=== PATIENT | male | born 1940 | race Caucasian/White ===

== ENCOUNTER → 2018-05-23 14:45 | Outpatient (CLI) | payer MEDICARE, OTHER ==
[~2018-05-23 14:45] MED LIST: AFRIN15 ML NASAL; ASCORBIC ACID500 MG PO; BAYER CHEWABLE81 MG PO; CARDURA2 MG PO; FISH OIL 1,2001 CAP PO; METOPROLOL TART25 MG PO; MULTIPLE VITAMI1 TA1 PO; NORVASC5 MG PO; PERCOCET 5-3251 TAB PO; PRINIVIL20 MG PO; SINGULAIR10 MG PO
[2018-06-17 10:13] VITALS: BMI 33.0
== END | disposition home or self-care (01) ==
LOC: D.MRI 14:45
DX: M75.102 Unspecified rotator cuff tear or rupture of left shoulder, not specified as traumatic (principal)

== ENCOUNTER 2018-06-17 08:45 | Day surgery (SDC) | payer MEDICARE, OTHER ==
[2018-06-16 10:19] LABS: HEMATOCRIT 41.5 % (42.0-54.0); HEMOGLOBIN 14.2 g/dL (13.5-17.5); MCH 33.9 pg (26.0-34.0); MCHC 34.2 g/dL (31.0-37.0); MEAN PLATELET VOLUME 10.5 fL (7.4-10.4); RBC 4.19 10x6/uL (4.20-6.10); RDW 13.5 % (11.5-14.5); WBC 7.7 10x3/uL (4.8-10.8)
[~2018-06-17] VITALS: Ht 177.8 cm; Wt 104.3 kg
--- NOTE | ~2018-06-17 | OP ---
PATIENT NAME: TOPHER SNEED MEDICAL RECORD: [id number] :42 LOCATION:[facility] ADMISSION DATE: SURGEON: VANESSA GARZA DO DATE OF OPERATION: 06/17/2018 PROCEDURE PERFORMED: Left shoulder arthroscopy with biceps tenodesis and distal clavicle excision and mini open rotator cuff repair. PREOPERATIVE DIAGNOSES: Left shoulder rotator cuff tear, acromioclavicular joint arthritis, and SLAP tear. POSTOPERATIVE DIAGNOSES: Left shoulder rotator cuff tear, acromioclavicular joint arthritis, and SLAP tear. INDICATIONS: Mr. Sneed is a 78-year-old male who presented to my office with years of shoulder pain. He had been to physical therapy and tried injections and had an MRI, which showed a tear of the rotator cuff, albeit partial. He was tired of dealing with the pain and wanted something done, told him we would scope it and fix what we saw. He was informed of the risks and benefits of the procedure including infection, bleeding, damage to nerve and vessels, need for further surgeries, irreparable repair, also due to his age. He was okay with that and consented to the procedure. DESCRIPTION OF PROCEDURE: The patient was given a block in the preoperative area and 900 mg of clindamycin preoperatively, taken to the operative suite, laid in the right lateral recumbent position with an axillary roll and a beanbag placed around the patient. He then had an LMA placed. The left shoulder was prepped and draped in sterile fashion. A timeout was performed, everyone was in agreement with the correct side, site and patient, procedure and then, the procedure began with the shoulder joint being inflated with 60 mL of normal saline. Then, the trocar was entered through the posterior portal using an 11 blade to start the portal. Anterior portal was then established with an 11-blade scalpel with a spinal needle first and the biceps tendon was inspected. There was a labral tear, SLAP tear, superior labrum anterior and posterior. We then did a tenotomy of the biceps tendon. The rotator cuff was inspected and seemed to have a tear. The subscapularis tendon was inspected as well and not seemed to have a tear. There was a small amount of chondromalacia on the humeral head. The glenoid looked good. No signs of chondromalacia. I then went to the superior part of the shoulder, the subacromial space and there was a lot of bursa. This was cleared off with a shaver and the distal clavicle was excised with a bur and shaver. The acromion did not seem to have a large spur on it. We then opened it and did a rotator cuff repair through the lateral portal that had been established previously and then that was completed with the medial and lateral rows. The tissue of the posterior cuff was somewhat fragile. This is of note, but we did get it repaired. The biceps tenodesis then was performed, went to the anterior part of the shoulder, made a small incision and dissected down to encountered bicep tendon. This was whipstitched and then a single button was placed on it and placed unicortically into the humerus and tied down and oversewn with a free needle of the extra suture and this was tied down as well. The wounds were then thoroughly irrigated and each of the open wounds were closed with 2-0 Vicryl. The deltoid fascia was closed with 0 Vicryl and then 3-0 Monocryl ran on the skin. The portal sites, anterior and posterior were closed with 3-0 Monocryl in an inverted interrupted fashion. There seemed to be a blister, may have been a burn just distal to the anterior portal. Adaptic, Telfa and Tegaderm were placed over this as well as the portal. No OPERATIVE REPORT [id number] TOPHER SNEED other complications. Blood loss was minimal. He was awakened and taken to recovery, put in a sling in stable condition. TRANSINT:[id number] Voice Confirmation ID: [id number] DOCUMENT ID: [id number] VANESSA GARZA DO at 1657 CC: [id number] DICTATION DATE: 06/17/18 1443 SPECIFICATIONS CHECKER: 06/17/18 1549 [facility] 06/17/18 [place] [id number] [place] [id number]
[~2018-06-17 08:45] MED LIST changes: -PERCOCET 5-3251 TAB PO
[2018-06-17 10:07] VITALS: BP 152/77; BMI 33.0
[2018-06-17 10:13] VITALS: BP 152/77; Ht 177.8 cm; Wt 104.3 kg
[2018-06-17] MEDS ORDERED: PERCOCET 5-3251 TAB PO (14:37)
== END 2018-06-17 16:39 | disposition home or self-care (01) ==
LOC: D.OPS 08:45 → D.PAN 09:45 → D.OPS 10:15 → D.PAN 10:40 → D.OPS 16:39
PROVIDERS: Anesthesiology
DX: M75.112 Incomplete rotator cuff tear or rupture of left shoulder, not specified as traumatic (principal); M13.812 Other specified arthritis, left shoulder; S43.432A Superior glenoid labrum lesion of left shoulder, initial encounter; X58.XXXA Exposure to other specified factors, initial encounter; Z01.812 Encounter for preprocedural laboratory examination

== ENCOUNTER 2018-09-20 05:16 | Day surgery (SDC) | payer MEDICARE, OTHER ==
[~2018-09-20] VITALS: Ht 177.8 cm; Wt 107.5 kg
--- NOTE | ~2018-09-20 | OP ---
PATIENT NAME: TOPHER ESCOBAR MEDICAL RECORD: [id number] :42 LOCATION:[facility] ADMISSION DATE: SURGEON: JOSESITO COSTA MD DATE OF OPERATION: 09/20/2018 SURGEON: Josesito Costa MD ANESTHESIA: MAC or TIVA by Itzel Hussein CRNA DIAGNOSIS: Elevated PSA of 5.63. PROCEDURE: Transrectal ultrasound and prostate biopsy. FINDINGS: A 45.6 gram prostate with no hypoechoic areas. CLINICAL HISTORY: This is a 78-year-old male, who was referred with an elevated PSA of 5.63. The previous year, the PSA was in the normal range. He has some mild obstructive voiding symptoms and there is no family history of prostate cancer. He comes today for a prostate biopsy. He is not allergic to any medications. He was given Ancef reconciliation specialist to the OR. DESCRIPTION OF PROCEDURE: The patient was given IV sedation. He was then placed into dorsal lithotomy position. The transrectal ultrasound probe was placed and prostate size measurements were obtained. We obtained a size of 45.6 grams. There were some intraprostatic stones, but no hypoechoic areas were seen. Sextant biopsies were obtained with at least 3 cores from each sextant. Once all the specimens were obtained, the procedure was terminated. The patient was brought back to the preoperative holding area. I will see him in followup next week to review the pathology with him. TRANSINT:[id number] Voice Confirmation ID: [id number] DOCUMENT ID: [id number] JOSESITO COSTA MD at 0826 CC: [id number] DICTATION DATE: 09/20/18808 BIOMEDICAL REPAIR TECHNICIAN: 09/20/18 0824 [facility] [address] [place] [id number]
[~2018-09-20 05:16] MED LIST changes: +PERCOCET 5-3251 TAB PO
[2018-09-20 05:38] LABS: HEMATOCRIT 43.3 % (42.0-54.0); HEMOGLOBIN 14.2 g/dL (13.5-17.5); MCH 32.7 pg (26.0-34.0); MCHC 32.8 g/dL (31.0-37.0); MCV 99.8 fL (80.0-100.0); MEAN PLATELET VOLUME 10.6 fL (7.4-10.4); RBC 4.34 10x6/uL (4.20-6.10); RDW 14.5 % (11.5-14.5); WBC 7.4 10x3/uL (4.8-10.8)
[2018-09-20 06:27] VITALS: BP 149/75; Ht 177.8 cm; Wt 107.5 kg
== END 2018-09-20 09:04 | disposition home or self-care (01) ==
LOC: D.OPS 05:16 → D.PAN 07:30 → D.OPS 08:30
PROVIDERS: Anesthesiology
DX: R97.20 Elevated prostate specific antigen [PSA] (principal); I10 Essential (primary) hypertension

== ENCOUNTER → 2018-11-10 07:43 | Outpatient (CLI) | payer MEDICARE, OTHER ==
[2018-09-20 06:27] VITALS: BMI 34.0
== END | disposition home or self-care (01) ==
LOC: D.NM 07:43
DX: C61 Malignant neoplasm of prostate (principal)

== ENCOUNTER → 2019-10-09 16:01 | Outpatient (CLI) | payer MEDICARE, OTHER ==
[2018-09-20 06:27] VITALS: BMI 34.0
== END | disposition home or self-care (01) ==
LOC: D.LABREF 16:01
PROVIDERS: ATTEND Orthopaedic Surgery
DX: M16.11 Unilateral primary osteoarthritis, right hip (principal)

== ENCOUNTER 2019-10-11 12:06 | Inpatient (IN) | payer MEDICARE, OTHER ==
[~2019-10-11] VITALS: Ht 177.8 cm; Wt 111.1 kg
[2019-10-20] MEDS ORDERED: FLUTICASONE PRO16 GM NASAL (13:58)
[2019-10-23] MEDS ORDERED: FLOMAX0.4 MG PO (10:29)
[2019-10-23 11:56] LABS: APPEARANCE CLEAR (CLEAR); BACTERIA FEW /hpf (NEGATIVE); BILIRUBIN NEGATIVE (NEGATIVE); COLOR YELLOW (YELLOW); EPITHELIAL CELLS 0-5 /hpf (0-5); GLUCOSE NEGATIVE (NEGATIVE); GRANULAR CAST RARE /lpf (NONE SEEN); HYALINE CAST OCC /lpf (NONE SEEN); KETONE NEGATIVE (NEGATIVE); MUCUS >1+ /lpf (NONE SEEN); NITRITE NEGATIVE (NEGATIVE); PROTEIN TRACE mg/dL (NEGATIVE); RED CELLS - URINE NONE SEEN /hpf (0-5); UROBILINOGEN NORMAL (NORMAL); WHITE CELLS - URINE OCC /hpf (NEGATIVE)
[2019-10-31] VITALS (9 sets, daily range): BP systolic 95–152; BP diastolic 43–80; Ht 177.8 cm; Wt 111.1 kg
[2019-10-31] MEDS ORDERED: BACTRIM DS1 TAB PO (09:30)
[2019-10-31 09:38] LABS: BASOPHILS 0.6 % (0-2); EOSINOPHILS 3.2 % (0-7); HEMATOCRIT 39.5 % (42.0-54.0); HEMOGLOBIN 13.1 g/dL (13.5-17.5); IMMATURE GRANULOCYTES 0.5 % (0-5); LYMPHOCYTES 33.3 % (15-50); MCH 33.5 pg (26.0-34.0); MCHC 33.2 g/dL (31.0-37.0); MEAN PLATELET VOLUME 10.5 fL (7.4-10.4); MONOCYTES 8.5 % (2-11); NEUTROPHILS 53.9 % (40-80); PLATELET COUNT 222 10x3/uL (130-400); RBC 3.91 10x6/uL (4.20-6.10); RDW 13.9 % (11.5-14.5); WBC 6.6 10x3/uL (4.8-10.8)
[2019-10-31 09:44] LABS: CALC OSMOLALITY 290 mosm/kg (275-300); CALCIUM 8.9 mg/dL (8.5-10.1); CARBON DIOXIDE 26.5 mmol/L (21.0-32.0); CHLORIDE - SERUM 109 mmol/L (98-107); GLUCOSE 94 mg/dL (74-106); POTASSIUM - SERUM 4.1 mmol/L (3.5-5.1); SODIUM 144 mmol/L (136-145); UREA NITROGEN 23 mg/dL (7-18); eGFR NON AFRICAN AMERICAN 77 mL/min (90-120)
[2019-10-31 09:52] LABS: APTT 28.4 SECONDS (22.8-39.4); INR 1.1 (0.85-1.17); PROTIME 13.7 SECONDS (11.6-15.0)
--- NOTE | 2019-10-31 12:48 | NUR ---
PLASMA BLADE SET TO 6/8 GROUNDING PAD ON LEFT THIGH GROUNDIONG PAD LOT # [id number] EXP 04/06/2021
--- NOTE | 2019-10-31 15:20 | NUR ---
RCVED PT VIA HOSPITAL STAFF AND BED FROM RECOVERY ROOM. PT ALERT AND ORIENTED WITH NO S/S OF DISTRESS AT THIS TIME, DENIES NEEDS, WILL CONT TO MONITOR.
--- NOTE | 2019-10-31 15:45 | NUR ---
ICE APPLIED TO AFFECTED HIP, SCDS ON, ANKLES BRIDGED.
--- NOTE | 2019-10-31 19:15 | NUR ---
PATIENT LYING DOWN SLEEPING IN BED. AROUSES EASILY TO VOICE. DRESSING ON R HIP C/D/I. L HAND IV WITH 1/2 NS @100, NO REDNESS, OR SWELLING. 3L OF O2. PATIENT DENIES ANY NEEDS AT THIS TIME. CALL LIGHT AND BEDSIDE TABLE WITHIN REACH.
--- NOTE | 2019-10-31 20:30 | NUR ---
WHEN GIVING PATIENT NIGHT MEDS. PATIENT STATES THAT IT IS NORMAL FOR HIS HEART RATE TO RUN IN THE 50S AND SYSTOLIC BP TO BE BELOW 60 WHEN TAKING LOPRESSOR. DOCTOR SAID THIS IS OKAY.
[2019-11-01] VITALS (7 sets, daily range): BP systolic 118–144; BP diastolic 51–63
[2019-11-01 02:56] LABS: APPEARANCE CLEAR (CLEAR); BILIRUBIN NEGATIVE (NEGATIVE); COLOR YELLOW (YELLOW); GLUCOSE NEGATIVE (NEGATIVE); KETONE NEGATIVE (NEGATIVE); NITRITE NEGATIVE (NEGATIVE); PROTEIN 1+ mg/dL (NEGATIVE); SPECIFIC GRAVITY 1.025 (1.005-1.020); UROBILINOGEN NORMAL (NORMAL)
[2019-11-01 05:02] LABS: BASOPHILS 0.2 % (0-2); EOSINOPHILS 0.1 % (0-7); HEMATOCRIT 34.2 % (42.0-54.0); HEMOGLOBIN 11.1 g/dL (13.5-17.5); IMMATURE GRANULOCYTES 0.3 % (0-5); LYMPHOCYTES 12.3 % (15-50); MCHC 32.5 g/dL (31.0-37.0); MCV 101.8 fL (80.0-100.0); MEAN PLATELET VOLUME 10.8 fL (7.4-10.4); MONOCYTES 10.7 % (2-11); NEUTROPHILS 76.4 % (40-80); PLATELET COUNT 218 10x3/uL (130-400); RBC 3.36 10x6/uL (4.20-6.10); RDW 13.9 % (11.5-14.5)
[2019-11-01 05:10] LABS: WBC 11.2 10x3/uL (4.8-10.8)
[2019-11-01 05:19] LABS: CALCIUM 8.1 mg/dL (8.5-10.1); CARBON DIOXIDE 26.7 mmol/L (21.0-32.0); CREATININE - SERUM 1.1 mg/dL (0.6-1.3); MAGNESIUM - SERUM 1.9 mg/dL (1.8-2.4); PHOSPHOROUS 4.1 mg/dL (2.5-4.9); POTASSIUM - SERUM 4.7 mmol/L (3.5-5.1)
--- NOTE | 2019-11-01 07:30 | NUR ---
PT RESTING, RR EVEN AND UNLABORED. DENIES NEEDS OR PAIN AT THIS TIME. PSYCHOTHERAPIST AT BEDSIDE. CALL LIGHT WITHIN REACH. BED IN LOWEST POSITION. WILL CONTINUE TO MONITOR.
--- NOTE | 2019-11-01 11:07 | OP ---
PATIENT NAME: TOPHER SNEED MEDICAL RECORD: [id number] :42 LOCATION:D.[id number] ADMISSION DATE:10/31/19 SURGEON: HERNAN GARZA DO DATE OF OPERATION: 10/31/2019 PROCEDURE PERFORMED: Right total hip arthroplasty. PREOPERATIVE DIAGNOSIS: Right hip osteoarthritis. POSTOPERATIVE DIAGNOSIS: Right hip osteoarthritis. INDICATIONS: Mr. Sneed is a 79-year-old male who has had right hip pain for quite some time and is tired of dealing with it and had good luck with injections in the past and wants something done surgically. He is tired of it affecting his activities of daily living and wants something done. I informed her of the risks including infection, bleeding, damage to nerves and vessels, anterior lateral thigh numbness, fracture, need for further surgery, failure of implants, blood clots, and even and he signed the consent. SURGEON: Hernan Garza DO STAFF COUNSEL: Assisted by Ronald Whitman, advanced nurse practitioner and Cristhian Dickens, certified procedural coder, both assisted with retraction and closing. The surgery could not have been performed without their assistance. DESCRIPTION OF THE PROCEDURE: The patient was taken to the operative suite, laid in supine position, given 80 mg gentamicin and 2 grams of Ancef. He was then sedated and intubated and then moved over to the [place] table. The right hip was prepped and draped in sterile fashion. Timeout was performed and everybody was in agreement with the correct side, site, patient, and procedure. Incision was then marked out and cut down to the fascia and tensor fasciae latae muscle. Fascia was taken anteriorly with the muscle belly posteriorly. I opened up the rectus interval and fascia was then opened, then the rectus was taken medially and the tensor fascia laterally. The ascending branches of the lateral femoral circumflex were encountered, tied off, and coagulated with Aquamantys. We then put a Hohmann around the neck of the femur. The capsule was then opened and the neck cut was made. This was then removed. The head of the femur was then removed. Labrum was removed off the acetabulum as well as the Pulvinar and the inner portion of it and then reamed first with a #48 and up to a #54. We needed to medialize some more, we then went back with a #50 to medialize up to a 54. A #54 cup was then impacted into place. The liner was put in. The femur was exposed and found the canal with the canal finder and then the cookie cutter posteriorly. The broaching began up to a 13. This was trialed and then fit well with a -3 neck. This was taken out. The #13 was a little loose. A #14 was put down, #14 fit very well, #14 stem was then placed and -3 neck was put on with a high offset. This was then reduced and had good length and fit the femur very well. The site was then irrigated thoroughly and then the povidone-iodine solution 7% with 500 mL normal saline was introduced through the site and was left for 3 minutes and irrigated out with a liter of normal saline and then put tobramycin and vancomycin powder as well as Quinn powder in the site and closed the tensor fascia demetrio fascia with #1 Vicryl, first in a [id number] and then a running locking stitch. The skin was closed with 2-0 Vicryl in an inverted interrupted fashion and 4-0 Monocryl to the skin. Prineo glue on the skin and dressed with Telfa and Tegaderm. He was OPERATIVE REPORT [id number] TOPHER SNEED awakened and taken to the recovery in stable condition. Blood loss was approximately 200 mL. COMPLICATIONS: None. TRANSINT:[id number] Voice Confirmation ID: [id number] DOCUMENT ID: [id number] HERNAN GARZA DO at 1107 CC: [id number] DICTATION DATE: 10/31/19 1355 RADIOLOGY ASST: 10/31/19 5484 ADM IN [place] [id number] [place] [id number]
--- NOTE | 2019-11-01 12:45 | NUR ---
PT ASSISTED BACK TO BED WITH WALKER. STEADY GAIT NOTED. WATER RECIEVED PER REQUEST. DENIES FURTHER NEEDS OR PAIN AT THIS TIME. REPOSITIONED TO COMFORT. RECIVED FRESH ICE PACK FOR HIP. CALL LIGHT WITHIN REACH. BED IN LOWEST POSITION.WILL CONTINUE TO MONITOR.
--- NOTE | 2019-11-01 16:58 | NUR ---
CALLL LIGHT ANSWERED. PT DROPPED URINAL ON GROUND. PLACED IT BACK WITHIN REACH. DENIES FURTHER NEEDS OR PAIN AT THIS TIME. CALL LIGHT ALSO WITHIN REACH. BED IN LOWEST POSITION. PT REPOSITIONED TO COMFORT. WILL CONTINUE TO MONITOR.
--- NOTE | 2019-11-01 17:28 | NUR ---
I have reviewed this patient and I concur with the Shift Assessment completed by the Licensed Practical Nurse today this shift.
--- NOTE | 2019-11-01 20:00 | NUR ---
LYING IN BED. ALERT AND ORIENTED X4. RATES PAIN IN RT HIP 1 UNLESS MOVING AND THEN HE STATES ITS A 10. DENIES NEED FOR PAIN MED. DRSG C/D/I TO RT HIP. RESP NONLABORED. O2 @ 3L/NC. SCDS IN USE BILAT. HAVASUPAI. 1/2 NS @ 50 MLHR INFUSING IN LT HAND. ABD DISTENDED. HX OF ALCOHOL USE. NO DISTRESS. REBECCA ALARM ON. SR ELEVATED X2. CL IN REACH.
[2019-11-02] VITALS: BP 131/55
--- NOTE | 2019-11-02 01:51 | NUR ---
SPILLED URINAL IN BED. PERICARE PERFORMED. PAD CHANGED. CL IN REACH.
[2019-11-02 06:06] LABS: BASOPHILS 0.2 % (0-2); HEMOGLOBIN 10.6 g/dL (13.5-17.5); IMMATURE GRANULOCYTES 0.3 % (0-5); LYMPHOCYTES 13.7 % (15-50); MCH 32.6 pg (26.0-34.0); MCHC 32.1 g/dL (31.0-37.0); MCV 101.5 fL (80.0-100.0); MEAN PLATELET VOLUME 10.8 fL (7.4-10.4); NEUTROPHILS 71.8 % (40-80); PLATELET COUNT 193 10x3/uL (130-400); RBC 3.25 10x6/uL (4.20-6.10); RDW 14.2 % (11.5-14.5); WBC 12.1 10x3/uL (4.8-10.8)
--- NOTE | 2019-11-02 06:18 | NUR ---
LYING IN BED WITH EYES CLOSED. RESP EVEN AND NONLABORED. NO DISTRESS. REBECCA ON. CL IN REACH.
--- NOTE | 2019-11-02 06:45 | NUR ---
ALERT AND ORIENTED, RESTING IN BED WITH EYES OPEN. NO C/O PAIN. NO S/S OF ACUTE DISTRESS NOTED. AGITATED THIS MORNING. [place]OG[place]IUT. POD #2 RIGHT HIP, DRESSING C/D/I. UP WITH WALKER. ON 3L O2, NC. IV TO LEFT HAND, 1/2 NS INFUSING @ 50ML/HR. SITE PATENT WITHOUT REDNESS OR SWELLING. REBECCA ALARM ON. SCDS PRESENT. DENIES ANY NEEDS AT THIS TIME. CALL LIGHT IN REACH. WILL CONTINUE TO MONITOR.
[2019-11-02 07:04] LABS: CARBON DIOXIDE 24.1 mmol/L (21.0-32.0); CHLORIDE - SERUM 106 mmol/L (98-107); CREATININE - SERUM 0.9 mg/dL (0.6-1.3); GLUCOSE 109 mg/dL (74-106); MAGNESIUM - SERUM 1.9 mg/dL (1.8-2.4); SODIUM 141 mmol/L (136-145); eGFR NON AFRICAN AMERICAN 87 mL/min (90-120)
[2019-11-02 07:05] LABS: CALC OSMOLALITY 283 mosm/kg (275-300); PHOSPHOROUS 2.8 mg/dL (2.5-4.9); POTASSIUM - SERUM 3.8 mmol/L (3.5-5.1); UREA NITROGEN 18 mg/dL (7-18)
[2019-11-02 10:12] VITALS: BP 135/57
[2019-11-02 12:47] VITALS: BP 129/61
[2019-11-02 17:31] VITALS: BP 137/50
--- NOTE | 2019-11-02 18:54 | NUR ---
ALERT AND ORIENTED, RESTING IN BED WITH EYES OPEN. NO C/O PAIN. NO S/S OF ACUTE DISTRESS NOTED. DENIES ANY NEEDS AT THIS TIME. CALL LIGHT IN REACH. WILL CONTINUE TO MONITOR.
--- NOTE | 2019-11-02 19:40 | NUR ---
ALERT AND ORIENTED X4. LYING IN BED. IRRITABLE AT TIMES, DOESNT LIKE BEING DISTURBED. RESP NONLABORED. O2 @2LNC. SCDS IN USE BILAT. DRSG NOTED TO RT HIP IS C/D/I. [employer] [place]. REBECCA ALARM ON FOR PT SAFETY. 1/2 NS @ 30 MLHR INFUSING IN LT HAND. AMB WITH WALKER WITH ASSIST X1. DENIES PAIN AT THIS TIME. CL IN REACH.
--- NOTE | 2019-11-02 23:15 | NUR ---
MEDICATED WITH NORCO FOR C/O RT HIP PAIN. CL IN REACH.
[2019-11-03 04:00] VITALS: BP 133/61
[2019-11-03 05:17] LABS: BASOPHILS 0.1 % (0-2); EOSINOPHILS 2.2 % (0-7); HEMATOCRIT 31.2 % (42.0-54.0); HEMOGLOBIN 10.1 g/dL (13.5-17.5); IMMATURE GRANULOCYTES 0.3 % (0-5); LYMPHOCYTES 21.4 % (15-50); MCHC 32.4 g/dL (31.0-37.0); MEAN PLATELET VOLUME 10.7 fL (7.4-10.4); MONOCYTES 13.1 % (2-11); NEUTROPHILS 62.9 % (40-80); PLATELET COUNT 193 10x3/uL (130-400); RBC 3.06 10x6/uL (4.20-6.10); RDW 14.1 % (11.5-14.5)
[2019-11-03 06:21] LABS: ANION GAP 12.8 mmol/L (8-16); CALCIUM 8.4 mg/dL (8.5-10.1); CREATININE - SERUM 1.1 mg/dL (0.6-1.3); PHOSPHOROUS 2.8 mg/dL (2.5-4.9); POTASSIUM - SERUM 3.8 mmol/L (3.5-5.1)
--- NOTE | 2019-11-03 08:42 | NUR ---
RESTING IN BED, NO DISTRESS NOTED, SPILLED URINAL IN BED, DIFFICULT TO TURN, CONT TO MONITOR, DRESSING DRY AND INTACT TO RIGHT HIP
[2019-11-03 08:49] VITALS: BP 133/62
[2019-11-03 11:25] LABS: % SATURATION 9 % (15-55); IRON 16 ug/dl (35-150); TOTAL IRON BIND CAPACITY 174 ug/dl (260-445); UNSAT IRON BIND CAPACITY 158 ug/dl (150-375)
--- NOTE | 2019-11-03 11:40 | MORECARE ---
CASE MANAGEMENT DISCHARGE SUMMARY PATIENT: TOPHER ESCOBAR UNIT: [id number] ADM DATE: 10/31/19 AGE: 79 : 42 SEX: M ROOM/BED: D.2208 AUTHOR: TROY CAMACHO PHYSICIAN: REFERRING PHYSICIAN: VANESSA GARZA DO DATE OF SERVICE: 11/03/19 Discharge Plan Patient Name: TOPHER ESCOBAR [facility] [facility] 1940 Planned Disposition: Inpatient Rehab Anticipated Discharge Date: 11/03/19 Discharge Date: Expected LOS: 3 Initial Reviewer: [email or web address] Initial Review Date: 11/03/2019 Generated: 11/03/19 12:40 pm Patient Name: TOPHER ESCOBAR Page [phone] at 1140 All edits/amendments must be made on the electronic document DICTATION DATE: 11/03/19 1140 OBSTETRICAL TECH: SHANNON 11/03/19 1140 RPT#: [id number] DC DATE: STATUS: ADM IN [facility] [address] [place] [address] END OF REPORT
--- NOTE | 2019-11-03 11:47 | MORECARE ---
CASE MANAGEMENT DISCHARGE SUMMARY PATIENT: TOPHER SNEED UNIT: [id number] ADM DATE: 10/31/19 AGE: 79 : 42 SEX: M ROOM/BED: D.2208 AUTHOR: TROY CAMACHO PHYSICIAN: REFERRING PHYSICIAN: VANESSA GARZA DO DATE OF SERVICE: 11/03/19 Discharge Plan Patient Name: TOPHER SNEED [facility] : 1940 Planned Disposition: Inpatient Rehab Anticipated Discharge Date: 11/03/19 Discharge Date: Expected LOS: 3 Initial Reviewer: [email or web address] Initial Review Date: 11/03/2019 Generated: 11/03/19 12:46 pm DCPIA - Discharge Planning Initial Assessment Updated by [email or web address]: Caitlin Aquino on 11/03/19 11:45 am * Is the patient Alert and Oriented? Yes * How many steps to enter\exit or inside your home? 0/0 * PCP Dr. Frederick * Pharmacy [facility] on [address] * Preadmission Environment Home with Family * ADLs Independent * Equipment Oxygen * List name and contact numbers for known caregivers / representatives who currently or will assist patient after discharge: Miya Sneed - spouse - [phone] * Verbal permission to speak to the caregivers and representatives has been obtained from the patient. Yes * Community resources currently utilized None * Additional services required to return to the preadmission environment? Yes * Can the patient safely return to the preadmission environment? Yes * Has this patient been hospitalized within the prior 30 days at any hospital? No Last DP export: 11/03/19 10:40 am Patient Name: TOPHER SNEED Page [phone] at 1147 All edits/amendments must be made on the electronic document DICTATION DATE: 11/03/19 1146 DIRECTOR SALES: SHANNON 11/03/19 1146 RPT#: [id number] DC DATE: STATUS: ADM IN [facility] [address] [place] [address] END OF REPORT
--- NOTE | 2019-11-03 11:55 | MORECARE ---
CASE MANAGEMENT DISCHARGE SUMMARY PATIENT: TOPHER SNEED UNIT: [id number] ADM DATE: 10/31/19 AGE: 79 : 42 SEX: M ROOM/BED: D.2208 AUTHOR: TROY CAMACHO PHYSICIAN: REFERRING PHYSICIAN: VANESSA GARZA DO DATE OF SERVICE: 11/03/19 Discharge Plan Patient Name: TOPHER SNEED Facility: [facility]:[place] : 1940 Planned Disposition: Inpatient Rehab Anticipated Discharge Date: 11/03/19 Discharge Date: Expected LOS: 3 Initial Reviewer: [email or web address] Initial Review Date: 11/03/2019 Generated: 11/03/19 12:54 pm Comments DCP- Discharge Planning Updated by [email or web address]: Caitlin Aquino on 11/03/19 10:[address] Patient Name: TOPHER SNEED Admission Status: Elective Accout number: [id number] Admission Date: 10-31-2019 : 1940 Admission Diagnosis: Attending: VANESSA GARZA Current LOS: 3 Anticipated DC Date: 11-03-2019 Planned Disposition: Inpatient Rehab Primary Insurance: MEDICARE A & B Discharge Planning Comments: CM met with patient to complete initial dc planning assessment. CM educated patient on the CM role and verbal consent given by patient to complete assessment. Patient lives at home with his spouse. He states he is independent with all ADL's and AIDL's. States he wears oxygen at night, receives oxygen supplies from [facility] CM discussed availability of home health, rehab services, and medical equipment. Patient states he would like to go to inpatient rehab at [facility]. I have placed a rehab screen and spoke with [facility]. [facility] states they can accept today if discharged. I messaged Dr. Garza of the same. CM will continue to follow and will assist as needed with dc plans/needs. Solar Photovoltaic Electrician: Caitlin Aquino DCPIA - Discharge Planning Initial Assessment Updated by [email or web address]: Caitlin Aquino on 11/03/19 11:45 am * Is the patient Alert and Oriented? Yes * How many steps to enter\exit or inside your home? 0/0 * PCP Dr. Frederick * Pharmacy [facility] on [address] * Preadmission Environment Home with Family * ADLs Independent * Equipment Oxygen * List name and contact numbers for known caregivers / representatives who currently or will assist patient after discharge: Miya Sneed - spouse - [phone] * Verbal permission to speak to the caregivers and representatives has been obtained from the patient. Yes * Community resources currently utilized None * Additional services required to return to the preadmission environment? Yes * Can the patient safely return to the preadmission environment? Yes * Has this patient been hospitalized within the prior 30 days at any hospital? No Coverage Notice Reviewer: ROMEO Aquino Notice Issued Date-Time: 11/03/2019 11:47 Notice Type: IM Discharge Notice Notice Delivered To: Patient Relationship to Patient: Self Water Filter Cleaner Name: Delivery Method: HAND - Hand Delivered Summer Days: Prior Verbal Notification: Recipient Understood Notice: Yes Recipient Signature: Yes Med Rec Note Co-signed by Attending: Coverage Notice Comment: IMM explained, signed, given, copy placed in Mr Reviewer: [email or web address] Aquino Notice Issued Date-Time: 11/03/2019 11:47 Notice Type: Patient Choice Letter Notice Delivered To: Patient Relationship to Patient: Self Water Filter Cleaner Name: Delivery Method: HAND - Hand Delivered Summer Days: Prior Verbal Notification: Recipient Understood Notice: Yes Recipient Signature: Yes Med Rec Note Co-signed by Attending: Coverage Notice Comment: SANCHEZ for [facility] inpatient rehab Last DP export: 11/03/19 10:47 am Patient Name: TOPHER SNEED Page 89203 at 1155 All edits/amendments must be made on the electronic document DICTATION DATE: 11/03/19 1154 EDITOR MAGAZINE: SHANNON 11/03/19 1154 RPT#: [id number] DC DATE: STATUS: ADM IN [facility] [address] [place] [address] END OF REPORT
[2019-11-03 12:49] VITALS: BP 127/65
--- NOTE | 2019-11-03 16:35 | MORECARE ---
CASE MANAGEMENT DISCHARGE SUMMARY PATIENT: TOPHER SNEED UNIT: [id number] ADM DATE: 10/31/19 AGE: 79 : 42 SEX: M ROOM/BED: D.2208 AUTHOR: TROY CAMACHO PHYSICIAN: REFERRING PHYSICIAN: VANESSA GARZA DO DATE OF SERVICE: 11/03/19 Discharge Plan Patient Name: TOPHER SNEED Facility[facility]:[place] : 1940 Planned Disposition: Inpatient Rehab Anticipated Discharge Date: 11/03/19 Discharge Date: Expected LOS: 3 Initial Reviewer: [email or web address] Initial Review Date: 11/03/2019 Generated: 11/03/19 5:35 pm Comments DCP- Discharge Planning Updated by [email or web address]: Caitlin Aquino on 11/03/19 3:[address] I spoke with [facility] in inpatient rehab, they will accept the patient tomorrow. Anticipate discharge tomorrow to inpatient rehab. DCP- Discharge Planning Updated by [email or web address]: Caitlin Aquino on 11/03/19 10:[address] Patient Name: TOPHER SNEED Admission Status: Elective Accout number: [id number] Admission Date: 10-31-2019 : 1940 Admission Diagnosis: Attending: VANESSA GARZA Current LOS: 3 Anticipated DC Date: 11-03-2019 Planned Disposition: Inpatient Rehab Primary Insurance: MEDICARE A & B Discharge Planning Comments: CM met with patient to complete initial dc planning assessment. CM educated patient on the CM role and verbal consent given by patient to complete assessment. Patient lives at home with his spouse. He states he is independent with all ADL's and AIDL's. States he wears oxygen at night, receives oxygen supplies from [facility] CM discussed availability of home health, rehab services, and medical equipment. Patient states he would like to go to inpatient rehab at [facility]. I have placed a rehab screen and spoke with [facility]. Breana states they can accept today if discharged. I messaged Dr. Garza of the same. CM will continue to follow and will assist as needed with dc plans/needs. Manager Sharepoint: Caitlin Aquino DCPIA - Discharge Planning Initial Assessment Updated by [email or web address]: Caitlin Aquino on 11/03/19 11:45 am * Is the patient Alert and Oriented? Yes * How many steps to enter\exit or inside your home? 0/0 * PCP Dr. Frederick * Pharmacy [facility] on [address] * Preadmission Environment Home with Family * ADLs Independent * Equipment Oxygen * List name and contact numbers for known caregivers / representatives who currently or will assist patient after discharge: Miya Sneed - [facility] - [phone] * Verbal permission to speak to the caregivers and representatives has been obtained from the patient. Yes * Community resources currently utilized None * Additional services required to return to the preadmission environment? Yes * Can the patient safely return to the preadmission environment? Yes * Has this patient been hospitalized within the prior 30 days at any hospital? No Coverage Notice Reviewer: [email or web address] Nahomy Aquino Notice Issued Date-Time: 11/03/2019 11:47 Notice Type: IM Discharge Notice Notice Delivered To: Patient Relationship to Patient: Self Crutching Contractor Name: Delivery Method: HAND - Hand Delivered Summer Days: Prior Verbal Notification: Recipient Understood Notice: Yes Recipient Signature: Yes Med Rec Note Co-signed by Attending: Coverage Notice Comment: IMM explained, signed, given, copy placed in Mr Reviewer: [email or web address] Nahomy Charltony Kenia Notice Issued Date-Time: 11/03/2019 11:47 Notice Type: Patient Choice Letter Notice Delivered To: Patient Relationship to Patient: Self Crutching Contractor Name: Delivery Method: HAND - Hand Delivered Summer Days: Prior Verbal Notification: Recipient Understood Notice: Yes Recipient Signature: Yes Med Rec Note Co-signed by Attending: Coverage Notice Comment: SANCHEZ for [facility] inpatient rehab Last DP export: 11/03/19 10:55 am Patient Name: TOPHER SNEED Page [phone] at 1635 All edits/amendments must be made on the electronic document DICTATION DATE: 11/03/19 1635 PRODUCT SCIENTIST: SHANNON 11/03/19 1635 RPT#: [id number] DC DATE: STATUS: ADM IN [facility] [address] [place] [address] END OF REPORT
[2019-11-03 17:50] VITALS: BP 136/64
--- NOTE | 2019-11-03 19:45 | NUR ---
PT SITTING UP IN BED WITHOUT DISTRESS, AOX4. IV LEFT HAND INFUSING 1/2NS @ 50. O2 2L/NC. SCDS IN PLACE BILAT. BED ALARM ON. DENIES NEEDS AT THIS TIME. CL IN REACH, WILL CTM
[2019-11-03 20:00] VITALS: BP 124/61
--- NOTE | 2019-11-03 21:30 | NUR ---
PT REQUESTED PAIN MED FOR PAIN 6/10 IN HIP, GAVE NORCO ORDERED. DENIES OTHER NEEDS. CL IN REACH, WILL CTM
[2019-11-04 06:10] LABS: BASOPHILS 0.1 % (0-2); HEMATOCRIT 31.5 % (42.0-54.0); HEMOGLOBIN 10.2 g/dL (13.5-17.5); IMMATURE GRANULOCYTES 0.5 % (0-5); LYMPHOCYTES 21.8 % (15-50); MCH 33.1 pg (26.0-34.0); MCHC 32.4 g/dL (31.0-37.0); MCV 102.3 fL (80.0-100.0); MEAN PLATELET VOLUME 10.7 fL (7.4-10.4); MONOCYTES 12.6 % (2-11); PLATELET COUNT 213 10x3/uL (130-400); RBC 3.08 10x6/uL (4.20-6.10); RDW 14.1 % (11.5-14.5); WBC 9.7 10x3/uL (4.8-10.8)
[2019-11-04 06:26] LABS: CALC OSMOLALITY 285 mosm/kg (275-300); CALCIUM 8.7 mg/dL (8.5-10.1); CARBON DIOXIDE 25.2 mmol/L (21.0-32.0); CHLORIDE - SERUM 108 mmol/L (98-107); GLUCOSE 102 mg/dL (74-106); MAGNESIUM - SERUM 2.1 mg/dL (1.8-2.4); PHOSPHOROUS 3.3 mg/dL (2.5-4.9); POTASSIUM - SERUM 3.9 mmol/L (3.5-5.1); SODIUM 142 mmol/L (136-145); UREA NITROGEN 20 mg/dL (7-18); eGFR NON AFRICAN AMERICAN 77 mL/min (90-120)
--- NOTE | 2019-11-04 09:00 | NUR ---
ALERT AND ORIENTED X4 WITH DRESSING TO RT. HIP INTACT. LUNGS CTA WITH LIMITED ROM TO RT. HIP BUT UP WITH ASSIST WITH WALKER WITH THERAPY AND AMBULATED 15 FT. IN HALLWAY. ABDOMEN OBESE AND SOFT WITH BOWEL SOUNDS NOTED. INSTRUCTED ON NEED FOR STOOL SPECIMEN. DENIES ANY PAIN OR DISCOMFORT AT THIS TIME. IV TO LEFT HAND INFUSING AT PRESCRIBED RATE.
[2019-11-04] MEDS ORDERED: ASPIRIN81 MG PO (09:23)
[2019-11-04] MEDS ORDERED: HYDROCODON-ACE1 EA10 PO (09:24)
[2019-11-04] MEDS ORDERED: CIPRO500 MG PO (09:24)
[2019-11-04 10:12] VITALS: BP 143/95
--- NOTE | 2019-11-04 13:08 | NUR ---
IV DISCONTINUED AND DISCHARGED TO REHAB VIA W/C. STABLE AT TIME OF DEPARTURE.
--- NOTE | 2019-11-05 10:39 | MORECARE ---
CASE MANAGEMENT DISCHARGE SUMMARY PATIENT: TOPHER SNEED UNIT: [id number] ADM DATE: 10/31/19 AGE: 79 : 42 SEX: M ROOM/BED: D.2208 AUTHOR: TROY CAMACHO PHYSICIAN: REFERRING PHYSICIAN: VANESSA GARZA DO DATE OF SERVICE: 11/05/19 Discharge Plan Patient Name: TOPHER SNEED Facility: [facility]:[place] : 1940 Planned Disposition: Inpatient Rehab Anticipated Discharge Date: 11/03/19 Discharge Date: 11/04/2019 Expected LOS: 3 Initial Reviewer: [email or web address] Initial Review Date: 11/03/2019 Generated: 11/05/19 11:38 am Comments DCP- Discharge Planning Updated by [email or web address]: Caitlin Aquino on 11/03/19 3:[address] I spoke with Breana in inpatient rehab, they will accept the patient tomorrow. Anticipate discharge tomorrow to inpatient rehab. DCP- Discharge Planning Updated by [email or web address]: Caitlin Aquino on 11/03/19 10:[address] Patient Name: TOPHER SNEED Admission Status: Elective Accout number: [id number] Admission Date: 10-31-2019 : 1940 Admission Diagnosis: Attending: VANESSA GARZA Current LOS: 3 Anticipated DC Date: 11-03-2019 Planned Disposition: Inpatient Rehab Primary Insurance: MEDICARE A & B Discharge Planning Comments: CM met with patient to complete initial dc planning assessment. CM educated patient on the CM role and verbal consent given by patient to complete assessment. Patient lives at home with his spouse. He states he is independent with all ADL's and AIDL's. States he wears oxygen at night, receives oxygen supplies from [facility] CM discussed availability of home health, rehab services, and medical equipment. Patient states he would like to go to inpatient rehab at [facility]. I have placed a rehab screen and spoke with Breana. Breana states they can accept today if discharged. I messaged Dr. Garza of the same. CM will continue to follow and will assist as needed with dc plans/needs. Dividend Deposit Entry Clerk: Caitlin Aquino DCPIA - Discharge Planning Initial Assessment Updated by [email or web address]: Caitlin Aquino on 11/03/19 11:45 am * Is the patient Alert and Oriented? Yes * How many steps to enter\exit or inside your home? 0/0 * PCP Dr. Frederick * Pharmacy [facility] on [address] * Preadmission Environment Home with Family * ADLs Independent * Equipment Oxygen * List name and contact numbers for known caregivers / representatives who currently or will assist patient after discharge: Miya Sneed - spouse - [phone] * Verbal permission to speak to the caregivers and representatives has been obtained from the patient. Yes * Community resources currently utilized None * Additional services required to return to the preadmission environment? Yes * Can the patient safely return to the preadmission environment? Yes * Has this patient been hospitalized within the prior 30 days at any hospital? No Coverage Notice Reviewer: [email or web address] Aquino Notice Issued Date-Time: 11/03/2019 11:47 Notice Type: IM Discharge Notice Notice Delivered To: Patient Relationship to Patient: Self Steel Pourer Helper Name: Delivery Method: HAND - Hand Delivered Summer Days: Prior Verbal Notification: Recipient Understood Notice: Yes Recipient Signature: Yes Med Rec Note Co-signed by Attending: Coverage Notice Comment: IMM explained, signed, given, copy placed in Mr Reviewer: [id number] Nahomy Aquino Notice Issued Date-Time: 11/03/2019 11:47 Notice Type: Patient Choice Letter Notice Delivered To: Patient Relationship to Patient: Self Steel Pourer Helper Name: Delivery Method: HAND - Hand Delivered Summer Days: Prior Verbal Notification: Recipient Understood Notice: Yes Recipient Signature: Yes Med Rec Note Co-signed by Attending: Coverage Notice Comment: SANCHEZ for [facility] inpatient rehab Last DP export: 11/03/19 3:35 pm Patient Name: TOPHER SNEED Page [id number] at 1039 All edits/amendments must be made on the electronic document DICTATION DATE: 11/05/19 1038 CONVEYOR INSTALLER: SHANNON 11/05/19 1038 RPT#: [id number] DC DATE:11/04/19 STATUS: DIS IN [facility] [address] [place] [address] END OF REPORT
== END 2019-11-04 13:08 | DRG 469 ==
LOC: D.SDCHOLD 10-31 08:55 → D.MS 10-31 08:55 → D.SDCHOLD 10-31 10:00 → D.MS 10-31 15:15
PROVIDERS: Emergency Medicine; Family Medicine; ADMIT Orthopaedic Surgery; ATTEND Orthopaedic Surgery
PROC: 0SR90J9 Replacement of Right Hip Joint with Synthetic Substitute, Cemented, Open Approach (ICD-10-PCS; principal; 2019-10-31 10:30)
DX: M16.11 Unilateral primary osteoarthritis, right hip (principal); J18.9 Pneumonia, unspecified organism; D62 Acute posthemorrhagic anemia; I10 Essential (primary) hypertension

== ENCOUNTER 2019-11-04 14:16 | Inpatient (IN) | payer MEDICARE, OTHER ==
[~2019-11-04] VITALS: Ht 177.8 cm; Wt 111.1 kg
[~2019-11-04 14:16] MED LIST changes: +ASPIRIN81 MG PO; +BACTRIM DS1 TAB PO; +CIPRO500 MG PO; +FLOMAX0.4 MG PO; +FLUTICASONE PRO16 GM NASAL; +HYDROCODON-ACE1 EA10 PO
[2019-11-04 14:36] VITALS: BP 154/60; BMI 35.2
[2019-11-04 19:00] VITALS: BP 136/67
--- NOTE | 2019-11-04 19:00 | NUR ---
BEDSIDE REPORT COMPLETE. PT SITTING UP IN BED AWAKE AND ALERT/ORIENTED X4. DENIES ANY NEEDS OR PAIN. NO SIGNS OF ACUTE DISTRESS NOTED. RT ANTERIOR HIP INCISION GLUED WITHOUT REDNESS OR SWELLING. RUPTURED BLISTER WITHOUT DRAINAGE ON RIGHT LATERAL SIDE OF HIP OPEN TO AIR. VS STABLE. SHIFT ASSESSMENT COMPLETE. CL IN REACH. FALL PRECAUTIONS IN PLACE. WILL CONTINUE TO MONITOR
--- NOTE | 2019-11-04 23:19 | NUR ---
QUIET HOURS. PT LYING IN BED EYES CLOSED RESTING QUIETLY. RR EVEN AND UNLABORED. CONTINUES ON 2L VIA NC ONLY AT HS D/T SLEEP APNEA. CL IN REACH
--- NOTE | 2019-11-05 01:50 | NUR ---
PT LYING IN BED EYES CLOSED RESTING COMFORTABLY. RR EVEN AND UNLABORED. CL IN REACH
--- NOTE | 2019-11-05 05:31 | NUR ---
PT LYING IN BED AWAKE WATCHING TV. DENIES ANY NEEDS OR PAIN. NO SIGNS OF ACUTE DISTRESS NOTED. CL IN REACH
[2019-11-05 06:00] LABS: BASOPHILS 0.3 % (0-2); EOSINOPHILS 3.8 % (0-7); HEMATOCRIT 30.8 % (42.0-54.0); HEMOGLOBIN 10.1 g/dL (13.5-17.5); IMMATURE GRANULOCYTES 0.7 % (0-5); LYMPHOCYTES 25.7 % (15-50); MCH 33.1 pg (26.0-34.0); MCHC 32.8 g/dL (31.0-37.0); MEAN PLATELET VOLUME 10.3 fL (7.4-10.4); MONOCYTES 12.8 % (2-11); NEUTROPHILS 56.7 % (40-80); PLATELET COUNT 235 10x3/uL (130-400); RBC 3.05 10x6/uL (4.20-6.10); RDW 13.8 % (11.5-14.5); WBC 8.9 10x3/uL (4.8-10.8)
[2019-11-05 06:11] LABS: ANION GAP 10.7 mmol/L (8-16); CALCIUM 8.7 mg/dL (8.5-10.1); CARBON DIOXIDE 27.3 mmol/L (21.0-32.0); CREATININE - SERUM 1.1 mg/dL (0.6-1.3)
[2019-11-05 08:00] VITALS: BP 139/58
--- NOTE | 2019-11-05 08:35 | NUR ---
SITTING UP IN BED WATCHING TV. DENIES INCREASED PAIN TO RT HIP. DR GARZA VISITED THIS AM. CALL LIGHT IN REACH
--- NOTE | 2019-11-05 17:47 | NUR ---
SITTING UP IN BED WATCHING TV. USING URINAL NEEDED. MOD TO MAX ASST TO TRANSFER TO . WAITING ON OT FOR FIRST SHOWER. CALL LIGHT IN REACH
[2019-11-05 19:30] VITALS: BP 119/65
--- NOTE | 2019-11-05 19:30 | NUR ---
BEDSIDE REPORT COMPLETE. PT LYING IN BED WATCHING TV. DENIES ANY NEEDS OR PAIN. NO SIGNS OF ACUTE DISTRESS NOTED. VS STABLE. SHIFT ASSESSMENT COMPLETE. CL IN REACH. FALL PRECAUTIONS IN PLACE. WILL CONTINUE TO MONITOR
--- NOTE | 2019-11-05 23:34 | NUR ---
QUIET HOURS. PT LYING IN BED EYES CLOSED RESTING. RR EVEN AND UNLABORED. CONTINUES ON 1.5L NC HS. CL IN REACH
--- NOTE | 2019-11-06 04:18 | NUR ---
PT LYING IN BED EYES CLOSED RESTING. RR EVEN AND UNLABORED. CL IN REACH
[2019-11-06 06:28] LABS: BASOPHILS 0.4 % (0-2); EOSINOPHILS 5.1 % (0-7); HEMATOCRIT 32.1 % (42.0-54.0); HEMOGLOBIN 10.5 g/dL (13.5-17.5); IMMATURE GRANULOCYTES 0.8 % (0-5); LYMPHOCYTES 23.2 % (15-50); MCH 33.1 pg (26.0-34.0); MCHC 32.7 g/dL (31.0-37.0); MCV 101.3 fL (80.0-100.0); MEAN PLATELET VOLUME 10.2 fL (7.4-10.4); MONOCYTES 10.5 % (2-11); PLATELET COUNT 280 10x3/uL (130-400); RBC 3.17 10x6/uL (4.20-6.10); RDW 13.8 % (11.5-14.5); WBC 8.9 10x3/uL (4.8-10.8)
[2019-11-06 07:01] LABS: CALC OSMOLALITY 292 mosm/kg (275-300); CALCIUM 8.8 mg/dL (8.5-10.1); CARBON DIOXIDE 27.1 mmol/L (21.0-32.0); CHLORIDE - SERUM 109 mmol/L (98-107); GLUCOSE 100 mg/dL (74-106); POTASSIUM - SERUM 4.1 mmol/L (3.5-5.1); SODIUM 146 mmol/L (136-145); UREA NITROGEN 19 mg/dL (7-18); eGFR NON AFRICAN AMERICAN 77 mL/min (90-120)
[2019-11-06 07:59] VITALS: BP 127/59
--- NOTE | 2019-11-06 12:13 | NUR ---
SITTING UP IN BED FOR LUNCH. INCISION TO RT HIP INTACT. NO FURTHER DRAINAGE NOTED FROM RT HIP REPTURED BLISTER SITE. BAND AID COVERING AREA. ABLE TO PULL SELF UP IN BED WITH MIN ASST. DENIES INCREASED PAIN. USES URINAL. CALL LIGHT IN REACH
[2019-11-06 13:05] VITALS: Ht 177.8 cm; Wt 111.1 kg
--- NOTE | 2019-11-06 13:05 | NUR ---
SITTING UP IN WC IN ROOM. DENIES NEEDS. CALL LIGHT IN REACH
--- NOTE | 2019-11-06 16:33 | NUR ---
PATIENT ADMITTED TO REHAB FROM ACUTE FLOOR. DR. ESCALANTE IS PATIENT PCP. HE HAS O2 ( [facility] ) THAT HE USES AT . DISCHARGE PLANS ARE FOR HIM TO RETURN HOME WITH HIS SPOUSE. WILL CONTINUE TO FOLLOW WITH PATIENT.
--- NOTE | 2019-11-06 17:44 | NUR ---
SITTING UP EATING SUPPER IN BED. DENIES NEEDS OR C/O. CALL LIGHT IN REACH
[2019-11-06 18:50] VITALS: BP 152/61
--- NOTE | 2019-11-06 18:50 | NUR ---
BEDSIDE REPORT COMPLETE. PT SITTING UP IN BED VISITING WITH . DENIES ANY NEEDS OR PAIN. NO SIGNS OF ACUTE DISTRESS NOTED. VS STABLE. SHIFT ASSESSMENT COMPLETE. CL IN REACH. FALL PRECAUTIONS IN PLACE. WILL CONTINUE TO MONITOR
--- NOTE | 2019-11-07 00:09 | NUR ---
QUIET HOURS. PT LYING IN BED EYES CLOSED RESTING. NO SIGNS OF ACUTE DISTRESS NOTED. CONTINUES ON 1.5L VIA NC. CL IN REACH
--- NOTE | 2019-11-07 03:34 | NUR ---
PT LYING IN BED EYES CLOSED RESTING COMFORTABLY. RR EVEN AND UNLABORED. CL IN REACH
--- NOTE | 2019-11-07 06:25 | NUR ---
PT SITTING UP IN BED WATCHING MORNING NEWS. DENIES ANY NEEDS OR PAIN. NO SIGNS OF ACUTE DISTRESS NOTED. CL IN REACH
[2019-11-07 07:45] VITALS: BP 124/53
--- NOTE | 2019-11-07 08:00 | NUR ---
SHIFT ASSMT COMPLETED.
--- NOTE | 2019-11-07 19:46 | NUR ---
PATIENT RECEIVED SITTING UP IN WHEELCHAIR. PATIENT IN ROOM. VITALS SIGNS & ASSESSMENT DONE. NO C/O PAIN OR DISTRESS. CALL LIGHT WITHIN REACH. WILL CONTINUE TO MONITOR.
--- NOTE | 2019-11-08 02:07 | NUR ---
PATIENT C/O PAIN LEVEL & TO RIGHT HIP & GROIN. PAIN MEDICATION GIVEN. BED LOW. CALL LIGHT WITHIN REACH. WILL CONTINUE TO MONITOR.
--- NOTE | 2019-11-08 02:32 | NUR ---
I have reviewed this patient and I concur with the Shift Assessment completed by the Licensed Practical Nurse today this shift.
--- NOTE | 2019-11-08 02:33 | NUR ---
PATIENT AWAKE. PAIN LEVEL 3. BED LOW. ALARM ON. ALARM ON. WILL CONTINUE TO MONITOR.
[2019-11-08 08:00] VITALS: BP 145/70
--- NOTE | 2019-11-08 08:00 | NUR ---
SHIFT ASSMT COMPLETED.
[2019-11-08 08:02] LABS: BASOPHILS 0.6 % (0-2); EOSINOPHILS 4.6 % (0-7); HEMATOCRIT 30.8 % (42.0-54.0); HEMOGLOBIN 9.9 g/dL (13.5-17.5); IMMATURE GRANULOCYTES 0.8 % (0-5); LYMPHOCYTES 24.9 % (15-50); MCH 32.7 pg (26.0-34.0); MCHC 32.1 g/dL (31.0-37.0); MCV 101.7 fL (80.0-100.0); MONOCYTES 11.2 % (2-11); NEUTROPHILS 57.9 % (40-80); PLATELET COUNT 296 10x3/uL (130-400); RBC 3.03 10x6/uL (4.20-6.10); RDW 13.7 % (11.5-14.5)
[2019-11-08 08:12] LABS: CALC OSMOLALITY 289 mosm/kg (275-300); CALCIUM 8.3 mg/dL (8.5-10.1); CARBON DIOXIDE 27.2 mmol/L (21.0-32.0); CHLORIDE - SERUM 109 mmol/L (98-107); GLUCOSE 94 mg/dL (74-106); POTASSIUM - SERUM 3.8 mmol/L (3.5-5.1); SODIUM 144 mmol/L (136-145); UREA NITROGEN 20 mg/dL (7-18); eGFR NON AFRICAN AMERICAN 77 mL/min (90-120)
--- NOTE | 2019-11-08 16:00 | NUR ---
CONTINUE WITH POC.
--- NOTE | 2019-11-08 16:51 | NUR ---
CARE TEAM MEETING: PATIENT IS DOING WELL IN THERAPY. TENTAIVE DISCHARGE DATE IS 11/15/2019. WILL CONTINUE TO FOLLOW WITH PATIENT.
--- NOTE | 2019-11-08 19:30 | NUR ---
PT SITTING UP IN WHEELCHAIR IN ROOM. DENIES NEEDS AT THIS TIME. BED IN LOW SIDE RAILS X2. CL IN REACH. RESP EVEN AND UNLABORED. O2 ON 1.5L VIA NC. A/O X4. LUNGS CLEAR. BOWEL ACTIVE X4. WILL CONTINUE TO MONITOR.
[2019-11-08 20:22] VITALS: BP 122/52
--- NOTE | 2019-11-09 00:47 | NUR ---
I have reviewed this patient and I concur with the Shift Assessment completed by the Licensed Practical Nurse today this shift.
[2019-11-09 08:00] VITALS: BP 119/61
--- NOTE | 2019-11-09 09:53 | NUR ---
NUTRITION F/U PT TOLERATING REG DIET WITH 100% INTAKE RECENT MEALS. PT HOPING FOR DC SOON. WILL CONTINUE TO PROVIDE DIET, HONOR FOOD PREFERENCES. RD FOLLOWING
--- NOTE | 2019-11-09 15:38 | NUR ---
SITTING UP IN WC IN ROOM WATCHING TV. HAS BEEN ROLLING AROUND THERAPY GYM TODAY. NO S/S INFECTION TO RT HIP INCISION. DENIES NEEDS OR C/O. CALL LIGHT IN REACH
[2019-11-09 20:00] VITALS: BP 134/59
--- NOTE | 2019-11-09 22:56 | NUR ---
PATIENT RECEIVED SITTING UP IN WHEELCHAIR. IN ROOM. ASSESSMENT & VITAL SIGNS DONE. NO C/O PAIN OR DISTRESS. CALL LIGHT WITHIN REACH. WILL CONTINUE TO MONITOR.
--- NOTE | 2019-11-10 00:25 | NUR ---
I have reviewed this patient and I concur with the Shift Assessment completed by the Licensed Practical Nurse today this shift.
--- NOTE | 2019-11-10 02:31 | NUR ---
PATIENT EYES CLOSED. RESPIRATIONS 18 & EVEN. BED LOW. CALL LIGHT WITHIN REACH. WILL CONTINUE TO MONITOR.
[2019-11-10 08:07] VITALS: BP 122/55
[2019-11-10 08:26] LABS: BASOPHILS 0.5 % (0-2); EOSINOPHILS 3.7 % (0-7); HEMATOCRIT 34.8 % (42.0-54.0); HEMOGLOBIN 11.4 g/dL (13.5-17.5); IMMATURE GRANULOCYTES 0.7 % (0-5); LYMPHOCYTES 25.5 % (15-50); MCH 32.9 pg (26.0-34.0); MCHC 32.8 g/dL (31.0-37.0); MCV 100.6 fL (80.0-100.0); MEAN PLATELET VOLUME 9.9 fL (7.4-10.4); MONOCYTES 8.3 % (2-11); NEUTROPHILS 61.3 % (40-80); RBC 3.46 10x6/uL (4.20-6.10); RDW 13.6 % (11.5-14.5); WBC 8.2 10x3/uL (4.8-10.8)
[2019-11-10 08:28] LABS: PLATELET COUNT 383 10x3/uL (130-400)
[2019-11-10 08:39] LABS: ANION GAP 12.4 mmol/L (8-16); CARBON DIOXIDE 29.2 mmol/L (21.0-32.0); CREATININE - SERUM 1.1 mg/dL (0.6-1.3); POTASSIUM - SERUM 3.6 mmol/L (3.5-5.1)
--- NOTE | 2019-11-10 10:47 | NUR ---
SITTING IN WC IN ROOM WATCHING TV. DENIES NEEDS OR C/O. DOES MORE FOR HIMSELF NOW, HE STATES HE FEELS LIKE HE IS GETTING STRONGER. RT HIP INCISION INTACT. NO S/S INFECTION. HAS BEEN IN THERAPY THIS AM AND DENIES NEW C/O.
--- NOTE | 2019-11-10 13:20 | NUR ---
SITTING IN WC IN ROOM. APPEARS TO BE NAPPING IN CHAIR. CALL LIGHT IN REACH
--- NOTE | 2019-11-10 19:29 | NUR ---
PT IS UP IN THE BATHROOM AT THIS TIME. NO NEEDS VOICED.
[2019-11-10 20:34] VITALS: BP 132/58
--- NOTE | 2019-11-11 00:29 | NUR ---
I have reviewed this patient and I concur with the Shift Assessment completed by the Licensed Practical Nurse today this shift.
--- NOTE | 2019-11-11 03:06 | NUR ---
RESTING IN BED WITH EYES CLOSED.
--- NOTE | 2019-11-11 05:45 | NUR ---
PT RESTING IN BED WITH EYES CLOSED. AWOKE EASILY TO VERBAL STIMULI. TOLERATED AM MED WITHOUT DIFFICULTY. ANXIOUS TO GET PT STARTED.
[2019-11-11 08:00] VITALS: BP 155/65
--- NOTE | 2019-11-11 08:00 | NUR ---
SHIFT ASSMT COMPLETED
[2019-11-11 19:43] VITALS: BP 141/61
--- NOTE | 2019-11-11 20:00 | NUR ---
PT RESTING IN BED WATCHIN TV. ALERT AND ORIENTED X 3. DENIES ACUTE DISCOMFORT AT THIS TIME. NO NEEDS VOICED. INCISION TO RIGHT HIP IS HEALING WELL. NO DRAINAGE NOTED. VSS. PT IS [place]. USING URINAL PRN. SR'S ARE UP X 2 IN BED. CALL LIGHT AND BEDSIDE TABLE ARE WITHIN EASY REACH.
--- NOTE | 2019-11-11 23:36 | NUR ---
I have reviewed this patient and I concur with the Shift Assessment completed by the Licensed Practical Nurse today this shift.
--- NOTE | 2019-11-12 03:23 | NUR ---
PT RESTING QUIETLY IN BED WITH EYES CLOSED. NO DISTRESS NOTED.
--- NOTE | 2019-11-12 05:55 | NUR ---
PT RESTING IN BED WITH EYES OPEN. NO ACUTE DISTRESS NOTED.
--- NOTE | 2019-11-12 08:00 | NUR ---
SHIFT ASSMT COMPLETED.BREAKFAST GIVEN.
[2019-11-12 08:15] VITALS: BP 143/64
--- NOTE | 2019-11-12 12:00 | NUR ---
SHOWER TAKEN SITTING UP EATING LUNCH.
--- NOTE | 2019-11-12 19:26 | NUR ---
PT IS RESTING IN BED WITH EYES OPEN. ALERT AND ORIENTED X 3. DENIES ACUTE PAIN OR DISCOMFORT AT THIS TIME. NO NEEDS VOICED. INCISION TO RIGHT HIP IS HEALING WELL. NO DRAINAGE NOTED. O2 IS ON @ 1.5 LPM PER NC. NO SOB NOTED. VSS. SR'S ARE UP X 2 IN BED. CALL LIGHT AND BEDSIDE TABLE ARE WITHIN EASY REACH.
--- NOTE | 2019-11-12 22:00 | NUR ---
RESTING QUIETLY IN BED WITH EYES CLOSED.
--- NOTE | 2019-11-12 23:20 | NUR ---
I have reviewed this patient and I concur with the Shift Assessment completed by the Licensed Practical Nurse today this shift.
--- NOTE | 2019-11-13 04:14 | NUR ---
RESTING IN BED WITH EYES CLOSED.
[2019-11-13 06:49] LABS: BASOPHILS 0.4 % (0-2); EOSINOPHILS 3.7 % (0-7); HEMATOCRIT 32.2 % (42.0-54.0); HEMOGLOBIN 10.3 g/dL (13.5-17.5); IMMATURE GRANULOCYTES 0.7 % (0-5); LYMPHOCYTES 27.7 % (15-50); MCH 32.4 pg (26.0-34.0); MCV 101.3 fL (80.0-100.0); MONOCYTES 8.6 % (2-11); NEUTROPHILS 58.9 % (40-80); PLATELET COUNT 391 10x3/uL (130-400); RBC 3.18 10x6/uL (4.20-6.10); RDW 13.5 % (11.5-14.5); WBC 8.4 10x3/uL (4.8-10.8)
[2019-11-13 07:13] LABS: CALC OSMOLALITY 288 mosm/kg (275-300); CALCIUM 8.6 mg/dL (8.5-10.1); CARBON DIOXIDE 31.1 mmol/L (21.0-32.0); CHLORIDE - SERUM 109 mmol/L (98-107); GLUCOSE 86 mg/dL (74-106); POTASSIUM - SERUM 4.4 mmol/L (3.5-5.1); SODIUM 145 mmol/L (136-145); UREA NITROGEN 16 mg/dL (7-18); eGFR NON AFRICAN AMERICAN 77 mL/min (90-120)
[2019-11-13] MEDS ORDERED: HYDROCODON-ACE1 EA10 PO (08:33)
--- NOTE | 2019-11-13 08:34 | RHP ---
PATIENT: TOPHER ESCOBAR MEDICAL RECORD: [id number] ACCOUNT: [id number] LOCATION:[facility] [id number] : [birth year] ADMISSION DATE: 11/04/19 REHABILITATION HISTORY AND PHYSICAL EXAMINATION POST ADMISSION PHYSICIAN EXAMINATION DATE OF ADMISSION: 11/04/2019. ADMITTING DIAGNOSIS: Right total hip arthroplasty. HISTORY OF PRESENT ILLNESS: The patient is a 79-year-old gentleman who had been having some problems with his right hip for quite some time. He has been getting some injections and other nonoperative therapy. He is tired of it affecting his activities of daily living and wants that done. He has been followed Dr. Frederick for history of hypertension, obstructive sleep apnea, had elective surgery done on 10/31/2019. His white count was up a little bit and his H and H remained stable. He did have questionable maybe right lower lobe pneumonia on x-ray after this and started on Mucinex and Levaquin. He has been having a difficult time and ambulate with therapy does not feel like he is ready to go home and is considering rehab to come in; previously lived with his , was independent with ADLs and mobility. Currently, he is mod-to-max assist for sit to stand and bed to chair. He is max assist with balance and safety while walking. He continues to have cueing for dragging his right foot and proper walker placement. He will need to correct all this prior to his going home. COMORBIDITIES: Include respiratory distress, cardiac arrhythmia, fluid overload, DVT, falls, loss of appetite, change in cognition, electrolyte imbalance, anemia, malnutrition, dehydration, weight loss, hypoxia, infection, anxiety, depression, hyperglycemia, hypertension, and hypertensive urgency. PAST MEDICAL HISTORY: He has had problems with allergies and sinus problems, got a history of sleep apnea and wears O2, pneumonia. He has a history of musculoskeletal complaints. PAST SURGICAL HISTORY: Includes gallbladder surgery, tonsillectomy and adenoidectomy. He has had a right elbow surgery times 2, bilateral knee replacement. ALLERGIES: No known drug allergies. CURRENT MEDICATIONS: Include Floranex 460 mg daily, Flomax 0.4 mg daily, multivitamin daily, lisinopril 20 mg daily, Flonase nasal spray daily, omega 3 one cap daily, vitamin C 500 mg daily, amlodipine 10 mg daily, Protonix 40 mg daily, Colace 100 mg b.i.d., Senna 2 tabs at bedtime, metoprolol 25 mg b.i.d., doxazosin 2 mg at bedtime, aspirin chewable 81 mg b.i.d., Dulcolax 10 mg b.i.d. p.r.n. constipation, MiraLax 17 grams b.i.d. p.r.n., and Levaquin. He is going to get 10 total dosages of this and [place] 10/325 one tab q.6 hours p.r.n. pain. HABITS: No alcohol or tobacco use. FAMILY HISTORY: Noncontributory. SOCIAL HISTORY: The patient hopes to return back home and get back to his prior level of functioning. HISTORY AND PHYSICAL [id number] TOPHER ESCOBAR REVIEW OF SYSTEMS: GENERAL: Does complain of weakness and fatigue. HEENT: Denies cold, cough, or congestion. CARDIOVASCULAR: Denies chest pain. PHYSICAL EXAMINATION: VITAL SIGNS: Stable, afebrile. GENERAL: A well-developed gentleman in no acute distress, alert upon exam. HEENT: Normocephalic and atraumatic. Mucosa moist. NECK: Supple. No lymphadenopathy. LUNGS: Clear in upper [place] with decreased breath sounds in the bases secondary to body habitus. CARDIOVASCULAR: Regular rate and rhythm. ABDOMEN: Soft and nondistended. Positive bowel sounds times 4. EXTREMITIES: No clubbing, cyanosis, or edema. His postop area looks good. NEUROLOGIC: Mainly intact. LABORATORY DATA: Admit labs show a white count of 9.7, H and H of 10 and 31 and platelet count is noted to be 213. His sodium is 142, potassium 3.9, BUN and creatinine of 20 and 1.0, and blood sugar was noted to be 102. Admit UA was essentially negative. ASSESSMENT: This is a 79-year-old gentleman admitted to the rehab with a working diagnosis of status post total hip replacement. The patient was also noted to be obese. Patient has potential to make improvement. We instituted the following multidisciplinary therapies include, but not limited to physical, occupational, respiratory, speech, nutritional services, prosthetics and orthotics. Given his complex medical condition and risk for more complications, rehabilitation services cannot be provided at a low level of care such as penitentiary facility. PLAN: 1. Admit to [facility] rehab for an intensive inpatient therapy to include the following disciplines: A. Physical therapy to improve gait, all transfer skills and bed mobility to a modified independent level. B. Occupational therapy to improve activities of daily living. C. Case management to assist with discharge planning and placement options. D. Nutrition to assist with nutritional needs. E. Rehabilitation nursing to assist in monitoring the patient's underlying medical conditions and to assist with any type of bowel or bladder management. 2. The patient's current medication and medical care will be continued. 3. The patient will be placed on standard fall precautions. 4. The patient's estimated length of stay is approximately 7-10 days. 5. We will discuss this during care team staff meeting this week, which should be in the a.m. TRANSINT:[id number] Voice Confirmation ID: [id number] DOCUMENT ID: [id number] PEREZ notes whether there has been none or any medical/functional change since admission: - No change since preadmission screen. HISTORY AND PHYSICAL [id number] TOPHER ESCOBAR attests patient continues to be appropriate for IRF: - Continues to be appropriate. JIM GORDILLO MD at 0834 CC: [id number] DICTATION DATE: 11/04/191801 SENIOR COMPENSATION CONSULTANT: 11/04/19 191 ADM IN [facility] [address] [place] [address]
--- NOTE | 2019-11-13 19:30 | NUR ---
PT IS RESTING IN BED WITH EYES OPEN. ALERT AND ORIENTED X 3. DENIES ACUTE PAIN OR DISCOMFORT AT THIS TIME. NO NEEDS VOICED. O2 IS ON @ 1.5 LPM PER NC. VSS. INCISION TO RIGHT HIP IS HEALING WELL. NO DRAINAGE NOTED. SR'S ARE UP X 2 IN BED. CALL LIGHT AND BEDSIDE TABLE ARE WITHIN EASY REACH.
--- NOTE | 2019-11-13 22:03 | NUR ---
PT IS RESTING QUIETLY IN BED WITH EYES CLOSED. RESPS ARE EVEN AND UNLABORED. NO ACUTE DISTRESS NOTED.
--- NOTE | 2019-11-14 02:00 | NUR ---
RESTING IN BED WITH EYES CLOSED.
--- NOTE | 2019-11-14 04:13 | NUR ---
I have reviewed this patient and I concur with the Shift Assessment completed by the Licensed Practical Nurse today this shift.
[2019-11-14 08:18] VITALS: BP 159/60
--- NOTE | 2019-11-14 08:52 | NUR ---
OPATIENT DISCHARGING HOME TODAY WITH FAMILY. [facility] WILL PROVIDE THERAPY AT HOME. PATIENT CHOICE FORM FOR HOME HEALTH WITH COMPARE DATA REVIEWED WITH PATIENT AND SPOUSE THEY BOTH VOICED UNDERSTANDING. [facility] FORM SIGNED COPY PLACED IN CHART AND ONE GIVEN TO PATIENT. DR. ESCALANTE 11/24/2019 @ 10:45, DR. GARZA 11/17/2019 @ 10:00. DISCHARGE INSTRUCTIONS FAXED TO PCP, HOME HEALTH AND REVIEWED WITH PATIENT.
--- NOTE | 2019-11-14 10:14 | NUR ---
LAYING ON BED RESTING QUIETLY. EYES CLOSED. CALL LIGHT IN REACH
--- NOTE | 2019-11-14 13:05 | NUR ---
SITTING IN WC IN ROOM WAITING ON TO COME GET HIM TO TAKE HIM HOME. REVIEWED MEDS AND DC PLAN WITH PT. HE DECLINED TO HAVE ANY MEDS CALLED IN TO HIS PHARMACY. CALL LIGHT IN REACH
== END 2019-11-14 14:46 | disposition home health service (06) | DRG 559 ==
LOC: D.REHAB 14:16
PROVIDERS: ADMIT Emergency Medicine; ATTEND Emergency Medicine
DX: Z47.1 Aftercare following joint replacement surgery (principal); J18.1 Lobar pneumonia, unspecified organism; I82.409 Acute embolism and thrombosis of unspecified deep veins of unspecified lower extremity; E46 Unspecified protein-calorie malnutrition; D62 Acute posthemorrhagic anemia; Z96.641 Presence of right artificial hip joint; R06.03 Acute respiratory distress; I49.9 Cardiac arrhythmia, unspecified; E87.70 Fluid overload, unspecified; R63.0 Anorexia; E87.8 Other disorders of electrolyte and fluid balance, not elsewhere classified; E86.0 Dehydration; R09.02 Hypoxemia; F41.8 Other specified anxiety disorders; R73.9 Hyperglycemia, unspecified; I16.0 Hypertensive urgency; Z91.81 History of falling; M16.11 Unilateral primary osteoarthritis, right hip; G47.33 Obstructive sleep apnea (adult) (pediatric)

== ENCOUNTER 2020-01-16 07:54 | Day surgery (SDC) | payer MEDICARE, OTHER ==
[~2020-01-16] VITALS: Ht 177.8 cm; Wt 113.9 kg
[~2020-01-16 07:54] MED LIST changes: +ASPIRIN EC81 M1 PO
[2020-01-16 08:28] LABS: BASOPHILS 0.9 % (0-2); EOSINOPHILS 4.9 % (0-7); HEMATOCRIT 42.2 % (42.0-54.0); HEMOGLOBIN 13.8 g/dL (13.5-17.5); IMMATURE GRANULOCYTES 0.3 % (0-5); LYMPHOCYTES 30.6 % (15-50); MCH 33.6 pg (26.0-34.0); MCHC 32.7 g/dL (31.0-37.0); MCV 102.7 fL (80.0-100.0); MEAN PLATELET VOLUME 9.7 fL (7.4-10.4); MONOCYTES 9.6 % (2-11); NEUTROPHILS 53.7 % (40-80); RBC 4.11 10x6/uL (4.20-6.10); RDW 14.1 % (11.5-14.5); WBC 5.8 10x3/uL (4.8-10.8)
[2020-01-16 08:37] LABS: PLATELET COUNT 207 10x3/uL (130-400)
[2020-01-16 08:50] LABS: APTT 29.7 SECONDS (22.8-39.4)
[2020-01-16 08:55] LABS: INR 0.98 (0.85-1.17)
[2020-01-16 09:28] VITALS: BP 123/72; Ht 177.8 cm; Wt 113.9 kg
--- NOTE | 2020-01-16 15:52 | OP ---
PATIENT NAME: TOPHER ESCOBAR MEDICAL RECORD: [id number] :44 LOCATION:[facility] ADMISSION DATE: SURGEON: MICHAEL COSTA MD DATE OF OPERATION: 01/16/2020 SURGEON: Michael Costa MD ANESTHESIA: TIVA by Alfredo Yoo MD DIAGNOSES: Prostate cancer, bladder outlet obstruction. PROCEDURE: UroLift times 6. FINDINGS: Obstructive bilateral lateral lobes, which are long. No median lobe. Heavily trabeculated bladder with diverticula and cellules, single ureteral orifices, no bladder tumors. ESTIMATED BLOOD LOSS: Minimal. CLINICAL HISTORY: This is a 79-year-old male with a stage T1c prostate cancer, which is under observation. His latest PSA is 2.17 (12/27/2019). On transrectal ultrasound, his prostate is 46 grams in size. He has trouble with voiding. He has nocturia times 5 and daytime urinary frequency every 1 hour. He has postvoid dribbling. IPSS score is 25. Quality of life score is 4. He wishes to have the UroLift procedure done to relieve his bladder outlet obstruction. He has no medication allergies. He was given Levaquin IV operations leader to the OR. DESCRIPTION OF PROCEDURE: The patient was given IV sedation. He was then placed into lithotomy position and prepped and draped. The UroLift scope was introduced. A 1.5 cm distal to the bladder neck at the anterolateral sulcus, one unit was placed on each side. Then, at the level of the verumontanum, at the anterolateral sulcus, one unit was placed on each side. Looking in with the obturator, there was still obstruction of the prostate in the mid prostatic level. In the middle of the prostatic urethra, at the middle distance in the anterior to posterior plane, we placed one unit on each side. This now resulted in a wide open prostatic urethra from the apex to the bladder neck. The bladder was left partly full and the scope was removed. This was for a voiding trial. I will see him in followup in 1 months' time. TRANSINT:[id number] Voice Confirmation ID: [id number] DOCUMENT ID: [id number] MICHAEL COSTA MD at 1552 CC: [id number] DICTATION DATE: 01/16/20 1111 HEMSTITCHER: 01/16/20 1239 [facility] 01/16/20 [facility] [address] [place] [id number]
== END 2020-01-16 12:45 | disposition home or self-care (01) ==
LOC: D.OPS 07:54 → D.PAN 11:00 → D.OPS 11:00
PROVIDERS: Anesthesiology; ATTEND Urology
DX: C61 Malignant neoplasm of prostate (principal); N32.0 Bladder-neck obstruction; I10 Essential (primary) hypertension

== ENCOUNTER → 2020-06-21 02:04 | Outpatient (CLI) | payer MEDICARE, OTHER ==
[2020-01-16 09:28] VITALS: BMI 36.0
== END | disposition home or self-care (01) ==
LOC: D.LABREF 02:04
PROVIDERS: ATTEND Orthopaedic Surgery
DX: M17.12 Unilateral primary osteoarthritis, left knee (principal)

== ENCOUNTER 2020-06-21 13:10 | Inpatient (IN) | payer MEDICARE, OTHER ==
[~2020-06-21] VITALS: Ht 177.8 cm; Wt 108.4 kg
[2020-07-12 09:33] LABS: ANION GAP 11.3 mmol/L (8-16); CALCIUM 9.1 mg/dL (8.5-10.1); CARBON DIOXIDE 29.6 mmol/L (21.0-32.0); CREATININE - SERUM 1.1 mg/dL (0.6-1.3); POTASSIUM - SERUM 3.9 mmol/L (3.5-5.1)
[2020-07-12 09:34] LABS: BASOPHILS 0.5 % (0-2); EOSINOPHILS 2.7 % (0-7); HEMATOCRIT 45.6 % (42.0-54.0); HEMOGLOBIN 15.1 g/dL (13.5-17.5); IMMATURE GRANULOCYTES 0.5 % (0-5); LYMPHOCYTES 32.1 % (15-50); MCH 33.9 pg (26.0-34.0); MCHC 33.1 g/dL (31.0-37.0); MCV 102.5 fL (80.0-100.0); MEAN PLATELET VOLUME 10.4 fL (7.4-10.4); MONOCYTES 9.4 % (2-11); NEUTROPHILS 54.8 % (40-80); PLATELET COUNT 210 10x3/uL (130-400); RBC 4.45 10x6/uL (4.20-6.10); RDW 13.9 % (11.5-14.5); WBC 6.4 10x3/uL (4.8-10.8)
[2020-07-12 10:12] LABS: INR 0.99 (0.85-1.17)
[2020-07-12 10:17] LABS: BILIRUBIN NEGATIVE (NEGATIVE); KETONE NEGATIVE (NEGATIVE); NITRITE NEGATIVE (NEGATIVE)
[2020-07-12 10:18] LABS: UROBILINOGEN NORMAL mg/dL (< 2)
[2020-07-12 10:19] LABS: BACTERIA FEW /HPF (NONE SEEN); EPITHELIAL CELLS 0-5 /hpf (0-5); WHITE CELLS - URINE OCC /HPF (0-1)
[2020-07-16] VITALS (11 sets, daily range): BP systolic 132–156; BP diastolic 56–81; BMI 34.5; BMI 34.3
--- NOTE | 2020-07-16 10:59 | NUR ---
THROUGH TRAFFIC KEPT TO A MINIMUM. ALCOHOL AND HIBACLENS USED TO CLEAN LEG BEFORE PREPPING. STERILE GOWNED AND GLOVED TO PREP WITH CHLORAPREP.
--- NOTE | 2020-07-16 11:52 | MORECARE ---
CASE MANAGEMENT DISCHARGE SUMMARY PATIENT: TOPHER ESCOBAR UNIT: [id number] ADM DATE: 07/16/20 AGE: 80 : 42 SEX: M ROOM/BED: D.1213 AUTHOR: TROY CAMACHO PHYSICIAN: REFERRING PHYSICIAN: VANESSA GARZA DO DATE OF SERVICE: 07/16/20 Discharge Plan Patient Name: TOPHER ESCOBAR [facility] [facility] 1940 Planned Disposition: Anticipated Discharge Date: Discharge Date: Expected LOS: Initial Reviewer: [email or web address] Initial Review Date: 07/16/2020 Generated: 07/16/20 12:52 pm Patient Name: TOPHER ESCOBAR Page [phone] at 1152 All edits/amendments must be made on the electronic document DICTATION DATE: 07/16/20 1152 PACU NURSE: SHANNON 07/16/20 1152 RPT#: [id number] DC DATE: STATUS: ADM IN [facility] [address] [place] [address] END OF REPORT
--- NOTE | 2020-07-16 15:34 | MORECARE ---
CASE MANAGEMENT DISCHARGE SUMMARY PATIENT: TOPHER ESCOBAR UNIT: [id number] ADM DATE: 07/16/20 AGE: 80 : 42 SEX: M ROOM/BED: D.1213 AUTHOR: TROY CAMACHO PHYSICIAN: REFERRING PHYSICIAN: VANESSA GARZA DO DATE OF SERVICE: 07/16/20 Discharge Plan Patient Name: TOPHER ESCOBAR [facility] [facility] 1940 Planned Disposition: Anticipated Discharge Date: Discharge Date: Expected LOS: Initial Reviewer: [email or web address] Initial Review Date: 07/16/2020 Generated: 07/16/20 4:33 pm Last DP export: 07/16/20 10:53 a Patient Name: TOPHER ESCOBAR Page [phone] at 1534 All edits/amendments must be made on the electronic document DICTATION DATE: 07/16/20 1533 HERBICIDE SPRAYER: SHANNON 07/16/20 1533 RPT#: [id number] DC DATE: STATUS: ADM IN [facility] [address] [place] [address] END OF REPORT
--- NOTE | 2020-07-16 16:02 | MORECARE ---
CASE MANAGEMENT DISCHARGE SUMMARY PATIENT: DYLAN SNEED UNIT: [id number] ADM DATE: 07/16/20 AGE: 80 : 42 SEX: M ROOM/BED: D.1213 AUTHOR: TROY CAMACHO PHYSICIAN: REFERRING PHYSICIAN: VANESSA GARZA DO DATE OF SERVICE: 07/16/20 Discharge Plan Patient Name: DYLAN SNEED Facility: [facility]:[place] : 1940 Planned Disposition: Anticipated Discharge Date: Discharge Date: Expected LOS: Initial Reviewer: [email or web address] Initial Review Date: 07/16/2020 Generated: 07/16/20 5:02 pm Comments DCP- Discharge Planning Updated by [email or web address]: Jennifer Ford on 07/16/20 2:[address] DC Plan: [facility], #[phone], Fx: [phone]. CM met with patient to discuss initial discharge planning. Patient is in agreement to proceed with the assessment. Patient reports that he lives at home independently with his , Miya Sneed ([phone]). Patient is alert/oriented. Stairs/steps: PCP: Dr. Skinner. Pharmacy: [facility]. Patient states he has been able to obtain all of his prescribed medications. HHS: None. DME: CPM, Ice wrap, walker, shower chair. Patient gives permission to speak with family members: spouse. 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 CM discussed the availability of HH, Rehab, SNF, OP Therapy, DME services. Patient would like to use [facility] ([phone]) and feels safe returning to previous environment. Patient denies hospitalization within the past 30 days. 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 Transportation at time of discharge: Spouse, Miya. CM will follow and assist with DC needs/plans PRN. Coverage Notice Reviewer: [id number] - Jennifer Ford Notice Issued Date-Time: 07/16/2020 15:57 Notice Type: Patient Choice Letter Notice Delivered To: Patient Relationship to Patient: Self Filling And Packing Supervisor Name: Dylan Sneed Delivery Method: HAND - Hand Delivered Summer Days: Prior Verbal Notification: Recipient Understood Notice: Yes Recipient Signature: Yes Med Rec Note Co-signed by Attending: Coverage Notice Comment: [facility] choice signed/given to patient. Last DP export: 07/16/20 2:34 p Patient Name: DYLAN SNEED Page [phone] at 1602 All edits/amendments must be made on the electronic document DICTATION DATE: 07/16/20 160 DRESSAGE INSTRUCTOR: SHANNON 07/16/20 1602 RPT#: [id number] DC DATE: STATUS: ADM IN [facility] [address] [place] [address] END OF REPORT
--- NOTE | 2020-07-16 16:50 | MORECARE ---
CASE MANAGEMENT DISCHARGE SUMMARY PATIENT: DYLAN SNEED UNIT: [id number] ADM DATE: 07/16/20 AGE: 80 : 42 SEX: M ROOM/BED: D.1213 AUTHOR: TROY CAMACHO PHYSICIAN: REFERRING PHYSICIAN: VANESSA GARZA DO DATE OF SERVICE: 07/16/20 Discharge Plan Patient Name: DYLAN SNEED Facility: [facility]:[place] : 1940 Planned Disposition: Anticipated Discharge Date: Discharge Date: Expected LOS: Initial Reviewer: [email or web address] Initial Review Date: 07/16/2020 Generated: 07/16/20 5:50 pm Comments DCP- Discharge Planning Updated by [email or web address]: Jennifer Ford on 07/16/20 3:[address] DC Plan: [facility], #[phone], Fx: [phone]. CM verified with patient's OP Therapy and she is in agreement to same. Faxed required information to Edwige, with [facility]. CM met with patient to discuss initial discharge planning. Patient is in agreement to proceed with the assessment. Patient reports that he lives at home independently with his , Miya Sneed ([phone]). Patient is alert/oriented. Stairs/steps: PCP: Dr. Skinner. Pharmacy: [facility]. Patient states he has been able to obtain all of his prescribed medications. HHS: None. DME: CPM, Ice wrap, walker, shower chair. Patient gives permission to speak with family members: spouse. 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 CM discussed the availability of HH, Rehab, SNF, OP Therapy, DME services. Patient would like to use [facility] ([phone]) and feels safe returning to previous environment. Patient denies hospitalization within the past 30 days. 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 Transportation at time of discharge: Spouse, Miya. CM will follow and assist with DC needs/plans PRN. Coverage Notice Reviewer: [id number] - Jennifer Ford Notice Issued Date-Time: 07/16/2020 15:57 Notice Type: Patient Choice Letter Notice Delivered To: Patient Relationship to Patient: Self Manager Consumer Insights Name: Dylan Sneed Delivery Method: HAND - Hand Delivered Summer Days: Prior Verbal Notification: Recipient Understood Notice: Yes Recipient Signature: Yes Med Rec Note Co-signed by Attending: Coverage Notice Comment: [facility] choice signed/given to patient. Last DP export: 07/16/20 3:02 p Patient Name: DYLAN SNEED Page [phone] at 1650 All edits/amendments must be made on the electronic document DICTATION DATE: 07/16/201649 SILVERWARE CLEANER: SHANNON 07/16/201649 RPT#: [id number] DC DATE: STATUS: ADM IN [facility] [address] [place] [address] END OF REPORT
--- NOTE | 2020-07-16 17:00 | MORECARE ---
CASE MANAGEMENT DISCHARGE SUMMARY PATIENT: DYLAN SNEED UNIT: [id number] ADM DATE: 07/16/20 AGE: 80 : 42 SEX: M ROOM/BED: D.1213 AUTHOR: TROY CAMACHO PHYSICIAN: REFERRING PHYSICIAN: VANESSA GARZA DO DATE OF SERVICE: 07/16/20 Discharge Plan Patient Name: DYLAN SNEED Facility: [facility]:[place] : 1940 Planned Disposition: Outpatient PT\OT Anticipated Discharge Date: Discharge Date: Expected LOS: Initial Reviewer: [email or web address] Initial Review Date: 07/16/2020 Generated: 07/16/20 6:00 pm Comments DCP- Discharge Planning Updated by [email or web address]: Jennifer Ford on 07/16/20 3:[address] DC Plan: [facility], #[phone], Fx: [phone]. CM verified with patient's OP Therapy and she is in agreement to same. Faxed required information to Edwige, with [facility]. CM met with patient to discuss initial discharge planning. Patient is in agreement to proceed with the assessment. Patient reports that he lives at home independently with his , Miya Sneed ([phone]). Patient is alert/oriented. Stairs/steps: PCP: Dr. Skinner. Pharmacy: [facility]. Patient states he has been able to obtain all of his prescribed medications. HHS: None. DME: CPM, Ice wrap, walker, shower chair. Patient gives permission to speak with family members: spouse. 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 CM discussed the availability of HH, Rehab, SNF, OP Therapy, DME services. Patient would like to use [facility] ([phone]) and feels safe returning to previous environment. Patient denies hospitalization within the past 30 days. 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 Transportation at time of discharge: Spouse, Miya. CM will follow and assist with DC needs/plans PRN. External Providers External Provider: [facility] Next Contact Date: Service Request Date: Service Type: Resolution: Reviewer: Comments: Coverage Notice Reviewer: [id number] Nahomy Ford Notice Issued Date-Time: 07/16/2020 15:57 Notice Type: Patient Choice Letter Notice Delivered To: Patient Relationship to Patient: Self Boom Worker Name: Dylan Sneed Delivery Method: HAND - Hand Delivered Summer Days: Prior Verbal Notification: Recipient Understood Notice: Yes Recipient Signature: Yes Med Rec Note Co-signed by Attending: Coverage Notice Comment: [facility] choice signed/given to patient. Last DP export: 07/16/20 3:50 p Patient Name: DYLAN SNEED Page [phone] at 1700 All edits/amendments must be made on the electronic document DICTATION DATE: 07/16/20 1700 SHAPE HAND: SHANNON 07/16/20 1700 RPT#: [id number] DC DATE: STATUS: ADM IN [facility] [address] [place] [address] END OF REPORT
--- NOTE | 2020-07-16 17:30 | MORECARE ---
CASE MANAGEMENT DISCHARGE SUMMARY PATIENT: DYLAN SNEED UNIT: [id number] ADM DATE: 07/16/20 AGE: 80 : 42 SEX: M ROOM/BED: D.1213 AUTHOR: TROY CAMACHO PHYSICIAN: REFERRING PHYSICIAN: VANESSA GARZA DO DATE OF SERVICE: 07/16/20 Discharge Plan Patient Name: DYLAN SNEED Facility: [facility]:[place] : 1940 Planned Disposition: Outpatient PT\OT Anticipated Discharge Date: 07/18/20 Discharge Date: Expected LOS: 2 Initial Reviewer: [email or web address] Initial Review Date: 07/16/2020 Generated: 07/16/20 6:30 pm Comments DCP- Discharge Planning Updated by [email or web address]: Jennifer Ford on 07/16/20 3:[address] DC Plan: [facility], #[phone], Fx: [phone]. CM verified with patient's OP Therapy and she is in agreement to same. Faxed required information to Edwige, with [facility]. CM met with patient to discuss initial discharge planning. Patient is in agreement to proceed with the assessment. Patient reports that he lives at home independently with his , Miya Sneed ([phone]). Patient is alert/oriented. Stairs/steps: PCP: Dr. Skinner. Pharmacy: [facility]. Patient states he has been able to obtain all of his prescribed medications. HHS: None. DME: CPM, Ice wrap, walker, shower chair. Patient gives permission to speak with family members: spouse. 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 CM discussed the availability of HH, Rehab, SNF, OP Therapy, DME services. Patient would like to use [facility] ([phone]) and feels safe returning to previous environment. Patient denies hospitalization within the past 30 days. Patient denies the use of community resources TRANSMITTER CHIEF. Transportation at time of discharge: Spouse, Miya. CM will follow and assist with DC needs/plans PRN. Coverage Notice Reviewer: [id number] - Jennifer Ford Notice Issued Date-Time: 07/16/2020 15:57 Notice Type: Patient Choice Letter Notice Delivered To: Patient Relationship to Patient: Self Equipment Washer Name: Dylan Sneed Delivery Method: HAND - Hand Delivered Summer Days: Prior Verbal Notification: Recipient Understood Notice: Yes Recipient Signature: Yes Med Rec Note Co-signed by Attending: Coverage Notice Comment: [facility] choice signed/given to patient. Last DP export: 07/16/20 4:00 p Patient Name: DYLAN SNEED Page [phone] at 1730 All edits/amendments must be made on the electronic document DICTATION DATE: 07/16/201729 PIN MAKER: SHANNON 07/16/201729 RPT#: [id number] DC DATE: STATUS: ADM IN [facility] [address] [place] [address] END OF REPORT
--- NOTE | 2020-07-16 19:15 | NUR ---
REPORT TAKEN FROM DAY SHIFT RN
--- NOTE | 2020-07-16 20:15 | NUR ---
PT ASSESSMENT COMPLETED. HE IS ON THE CPM AT THIS TIME. HEART SOUND REGULAR NO MURMUR HEARD. LUNGS SOUNDED CLEAR. BOWEL SOUNDS HEARD IN ALL QUADS. IV IS IN THE LEFT WRIST INFUSING AT 50 ML/HR. CORIE HOSE IN PLACE, SCD ON THE RIGHT LEG IS ON. LEFT KNEE HAS BLOODY DRAINAGE FROM THE INCISION SITE THAT HAS DRAINED ON THE MARGOTH WRAP ON HIS LEG. WATCHING CLOSESLY. PT HAD TO BE TAKEN OFF THE CPM TO GO TO THE BR. HE GETS ON HIS WALKER AND GOES TO THE BATHROOM. CPM CONT. WHEN HE GOT BACK IN BED. PT STATES HE HAS NO PAIN AT HIS INCISION SITE. SR ELEVATED X2. CALL LIGHT IS CLOSE AT HAND IF PT NEEDS TO CALL.
--- NOTE | 2020-07-16 21:00 | NUR ---
PT DRAINAGE IS MORE ON HIS MARGOTH WRAP FROM SURGERY. DR GARZA SAW IT AND ASKED THAT IT BE REINFORCED. THE PT WAS UP TO THE BR AT THIS TIME. REINFORCEMENT BANDAGE OF 3 ABD PADS AND MARGOTH WRAP APPLIED. DRAINAGE BLOOD IS NOW BRIGHTER RED. PT DID NOT FINISH HIS LAST 30 MINUTES OF HIS CPM. PT WAS TOLD THAT HE NEEDED TO USE THE URINAL THE REST OF THE NIGHT SINCE I DID NOT WANT HIM UP POSSIBLY MAKING THE BLEEDING WORSE. tHE BLEEDING ACTUALLY INCREASED DURING THE TIME ON THE CPM.
--- NOTE | 2020-07-16 22:00 | NUR ---
PT IS RESING WITH HIS EYES CLOSED. RESP EVEN AND UNLABORED.
--- NOTE | 2020-07-16 23:55 | NUR ---
PT AWAKE FOR VS. THERE IS NO DRAINAGE FROM THE REINFORCED DRAINAGE. PT HAS USED HIS URINAL TO VOID 100 ML. PT STATES HE HAS A PROSTATE PROBLEM. I ASKED PT IF HE NEEDED A PAIN PILL AND HE REPLIED NO, I'M NOT TAKING ANY.
--- NOTE | 2020-07-17 02:09 | NUR ---
PT IS RESTING QUIETLY WITH HIS EYES CLOSED. NO C/O OR NEEDS AT THIS TIME.
--- NOTE | 2020-07-17 05:20 | NUR ---
PT PLACED ON CPM MACHINE. I EXPLAINED THAT I WOULD BE LOOKING FOR MORE BLEEDING FROM HIS INCISION. HE TOLD ME THAT THE REASON HIS INCISION BLED IS BECAUSE HE HAD TO PUT "ALOT OF PRESSURE" ON THAT LEG TO GET UP FROM THE TOILET. I ASKED HIM WHY HE DIDN'T ASK FOR HELP AND HE BLEW OFF "I'M A MAN FROM [place] AND WE DON'T ASK FOR HELP"I LET HIM KNOW THAT HE'D HAD MAJOR SURGERY AND HE HAD BETTER START ASKING FOR HELP IF HE WANTED THINGS TO GO SMOOTHLY WITH HIS SURGERY. I EXPLAINED THAT HE'D CAUSED A LITTLE POST OP BLEEDING, WHICH WAS SERIOUS. I ASKED HIM TO PLEASE CALL FOR HELP IN THE FUTURE. HE SAID HE HATED TO BE A BOTHER. I REPLIED THAT WE'RE HERE TO HELP HIM AND KEEP HIM SAFE.
--- NOTE | 2020-07-17 06:25 | NUR ---
PT IS AWAKE READING IN BED. CPM STILL GOING. NO C/O OF NEEDS AT THIS TIME. PT REFUSES ANY PAIN MEDS.
[2020-07-17 07:43] LABS: BASOPHILS 0.1 % (0-2); EOSINOPHILS 0 % (0-7); HEMATOCRIT 42.4 % (42.0-54.0); HEMOGLOBIN 14.2 g/dL (13.5-17.5); IMMATURE GRANULOCYTES 0.2 % (0-5); LYMPHOCYTES 9.9 % (15-50); MCH 33.6 pg (26.0-34.0); MCHC 33.5 g/dL (31.0-37.0); MCV 100.2 fL (80.0-100.0); MEAN PLATELET VOLUME 10.7 fL (7.4-10.4); MONOCYTES 8.3 % (2-11); NEUTROPHILS 81.5 % (40-80); PLATELET COUNT 214 10x3/uL (130-400); RBC 4.23 10x6/uL (4.20-6.10); RDW 13.7 % (11.5-14.5); WBC 12.7 10x3/uL (4.8-10.8)
[2020-07-17 07:56] LABS: ALBUMIN 3.2 g/dL (3.4-5.0); BILIRUBIN - TOTAL 0.37 mg/dL (0.2-1.3); CALCIUM 8.3 mg/dL (8.5-10.1); CARBON DIOXIDE 25.1 mmol/L (21.0-32.0); CREATININE - SERUM 1.1 mg/dL (0.6-1.3); POTASSIUM - SERUM 4.1 mmol/L (3.5-5.1); PROTEIN - SERUM 6.1 g/dL (6.4-8.2)
--- NOTE | 2020-07-17 08:22 | OP ---
PATIENT NAME: TOPHER SNEED MEDICAL RECORD: [id number] :44 LOCATION:D. D.1213 ADMISSION DATE:07/16/20 SURGEON: HERNAN GARZA DO DATE OF OPERATION: 07/16/2020 PROCEDURE PERFORMED: Left revision total knee. PREOPERATIVE DIAGNOSIS: Left knee instability. POSTOPERATIVE DIAGNOSIS: Left knee instability. INDICATIONS: Mr. Sneed is a 80-year-old male who has complained of bilateral knee instability for quite some time. He feels like they are loose. He had both knees replaced approximately 15 years ago and got to the point where he wants something done surgically as he had been wearing braces to keep it from giving out on him. I informed him that we would try to switch out the poly or the plastic piece to give him more stability rather than having to do a full revision. His workup was negative for infection as well as loosening of the components. He is okay with that and he was aware of the risks including infection, bleeding, damage to nerves and vessels, need for further surgery, continued pain, further instability, blood clots, and even . They signed the consent. SURGEON: Hernan Garza DO DESCRIPTION OF PROCEDURE: The patient was taken to the operative suite, given a block per anesthesia in the preoperative area, laid in the supine position, given general anesthetic and intubated. He was given 2 grams of Ancef and 80 mg gentamicin and a gram of TXA prior to starting. The left lower extremity was prepped and draped in sterile fashion. A timeout was performed; everyone was in agreement with the correct side, site, patient and procedure. I then began by marking out over the old incision covered in Ioban and then used a 10 blade scalpel to go down through the skin to the capsule. Used a fresh 10 blade, did a medial parapatellar approach through the capsule then brought the knee to the extension, removed the clip that held in the poly and popped out the old poly. Old poly was a 12 and trialed a 14; 14 fit very well. He got good range of motion in extension and flexion without compromise and stability. Decided to go with 14 since it fit very well and it was very stable in flexion, mid flexion, and extension. I then put in the 14 E poly and then locked it into place with a locking bar. I then again ranged it to double check as we did not use a post or posterior stabilized poly for the trial. It fit very well and had good stability in flexion and extension as well as mid flexion. It was not unstable at all. We then irrigated with 10% povidone-iodine with 500 mL normal saline solution and lasted for 3 minutes and irrigated out with over a liter of normal saline and put in Quinn and vancomycin and tobramycin powder. We then closed the capsule with #1 Vicryl pop offs in mcjnii-os-bbukx fashion by myself. Cristhian Dcikens, board certified family physician and Elsie Agustin certified surgical service center assistant student then Cristhian and Elsie closed the skin with 2-0 Vicryl in inverted interrupted fashion and a ZipLine placed on the knee. He was then dressed with Adaptic, 4 x 4s, ABD, Webril, Will wrap, and CORIE hose stocking up to the knee. He was awakened and taken to recovery in stable condition. BLOOD LOSS: 100 mL. COMPLICATIONS: None. OPERATIVE REPORT [id number] TOPHER SNEED TRANSINT:[id number] Voice Confirmation ID: [id number] DOCUMENT ID: [id number] 07/17/2020 Edited for jacinto cantu. HERNAN GARZA DO at 0822 CC: [id number] DICTATION DATE: 07/16/201103 FORGER HELPER: 07/16/202049 [facility] [address] [place] [address]
--- NOTE | 2020-07-17 08:39 | NUR ---
PT RESTING QUIETLY IN BED. RESP EVEN AND UNLABORED. O2 @ 2L NC IN PLACE. PT REPORTS PAIN 2/10 AT THIS TIME, DENIES NEED FOR PAIN MEDICATION. IV TO LEFT HAND, SALINE LOC'D. DRESSING TO RIGHT KNEE INTACT, QUARTER SIZED SPOT OF DRIED BLOOD NOTED TO MARGOTH BANDAGE. DRESSING TO BE CHANGED PER MD ORDERS. DENIES FURTHER NEEDS AT THIS TIME. CL WITHIN REACH. ENCOURAGED TO CALL WITH NEEDS. CONTINUE POC
[2020-07-17 08:47] VITALS: BP 137/60
--- NOTE | 2020-07-17 09:45 | NUR ---
PT AMBULATING IN HALLWAY WITH PHYSICAL THERAPY. PT ILYA WELL.
--- NOTE | 2020-07-17 12:30 | NUR ---
PT REMAINS UP IN CHAIR AT BEDSIDE. REPORTS PAIN 2/10 AT THIS TIME. CONSUMING LUNCH. DENIES FURTHER NEEDS AT THIS TIME. CL WITHIN REACH. ENCOURAGED TO CALL WITH NEEDS.
[2020-07-17 13:37] VITALS: BP 144/66
[2020-07-17 15:29] VITALS: Ht 177.8 cm; Wt 108.4 kg
--- NOTE | 2020-07-17 15:30 | NUR ---
PT RESTING QUIETLY IN BED. NO ACUTE DISTRESS NOTED. DENIES NEED FOR PAIN MEDICATION AT THIS TIME. ENCOURAGED TO CALL WITH NEEDS. CL WITHIN REACH.
[2020-07-17 16:13] VITALS: BP 144/68
--- NOTE | 2020-07-17 20:00 | NUR ---
ALERT RESTING IN BED, DENIES PAIN OR NEEDS AT THIS TIME CALL LIGHT IN REACH, SEE SHIFT ASSESSMENT
[2020-07-17 20:25] VITALS: BP 154/65
--- NOTE | 2020-07-17 23:44 | NUR ---
LOOKED IN ON PT. HE IS SLEEPING SOUNDLY. HE HAS HIS O2 IN PLACE AT 2L VIA NC.
--- NOTE | 2020-07-18 04:50 | NUR ---
PT WAKED UP FOR VS. HE WAS THEN PLACED ON THE CPM MACHINE. NO C/O OR NEEDS. DENIES PAIN.
[2020-07-18 06:32] LABS: BASOPHILS 0.2 % (0-2); EOSINOPHILS 1.2 % (0-7); HEMATOCRIT 41.2 % (42.0-54.0); HEMOGLOBIN 13.7 g/dL (13.5-17.5); IMMATURE GRANULOCYTES 0.3 % (0-5); LYMPHOCYTES 18.2 % (15-50); MCH 33.7 pg (26.0-34.0); MCHC 33.3 g/dL (31.0-37.0); MCV 101.5 fL (80.0-100.0); NEUTROPHILS 69.1 % (40-80); PLATELET COUNT 195 10x3/uL (130-400); RBC 4.06 10x6/uL (4.20-6.10); WBC 10.5 10x3/uL (4.8-10.8)
[2020-07-18 06:43] LABS: ALBUMIN 3.3 g/dL (3.4-5.0); ALKALINE PHOSPHATASE 62 U/L (30-120); ALT (SGPT) 17 U/L (10-68); CALC OSMOLALITY 288 mosm/kg (275-300); CALCIUM 8.6 mg/dL (8.5-10.1); CARBON DIOXIDE 27.4 mmol/L (21.0-32.0); CHLORIDE - SERUM 109 mmol/L (98-107); GLUCOSE 99 mg/dL (74-106); POTASSIUM - SERUM 3.7 mmol/L (3.5-5.1); SODIUM 144 mmol/L (136-145); UREA NITROGEN 19 mg/dL (7-18); eGFR NON AFRICAN AMERICAN 77 mL/min (90-120)
--- NOTE | 2020-07-18 07:55 | NUR ---
PT RESTING IN BED WITH EYES CLOSED. CPM IN PLACE TO RIGHT LOWER EXTREMITY. PT ILYA WELL. DENIES PAIN AT THIS TIME. SALINE LOC TO LEFT HAND, SITE WITHOUT REDNESS OR EDEMA. CPM REMOVED AT THIS TIME. PT ASSISTED TO BATHROOM AND BACK TO BED USING WALKER. PT ILYA WELL. DENIES FURTHER NEEDS AT THIS TIME. CL WITHIN REACH. ENCOURAGE TO CALL WITH NEEDS. CONTINUE POC
[2020-07-18 08:32] VITALS: BP 169/84
[2020-07-18 11:34] VITALS: BP 129/75
[2020-07-18 15:29] VITALS: BP 144/67
[2020-07-18 20:00] VITALS: BP 163/78
--- NOTE | 2020-07-18 20:35 | NUR ---
ALERT RESTING IN BED CALL LIGHT IN REACH, DENIES PAIN OR NEEDS AT THIS TIME, CALL LIGHT IN REACH, CPM IN USE
[2020-07-19 04:00] VITALS: BP 189/81
[2020-07-19] MEDS ORDERED: KEFLEX500 MG PO (06:52)
[2020-07-19] MEDS ORDERED: HYDROCODON-ACE1 EAC7 PO (06:52)
[2020-07-19] MEDS ORDERED: BAYER CHEWABLE81 MG PO (06:52)
[2020-07-19 07:30] VITALS: BP 158/77
--- NOTE | 2020-07-19 08:00 | NUR ---
AWAKE AND ALERT. ORIENTED X3. NO C/O AT THIS TIME. LUNGS ARE CLEAR BILATERALLY, NO COUGH NOTED. REPORTS USING IS INSTRUCTED. SKIN IS INTACT WITHOUT REDNESS EXCEPT INCISION TO LEFT KNEE WHICH HAS A DRY INTACT DRESSING IN PLACE. SL TO LEFT HAND PATENT WITHOUT REDNESS AT INSERTION SITE.BREAKFAST SERVED IN ROOM. FEEDS SELF. TOOK CPM OFF PER SELF. UP TO BR PER SELF.
[2020-07-19 09:00] LABS: BASOPHILS 0.2 % (0-2); EOSINOPHILS 1.9 % (0-7); HEMATOCRIT 42.2 % (42.0-54.0); IMMATURE GRANULOCYTES 0.4 % (0-5); LYMPHOCYTES 24.1 % (15-50); MCH 33.7 pg (26.0-34.0); MCHC 33.2 g/dL (31.0-37.0); MCV 101.7 fL (80.0-100.0); MEAN PLATELET VOLUME 10.3 fL (7.4-10.4); MONOCYTES 9.4 % (2-11); PLATELET COUNT 191 10x3/uL (130-400); RBC 4.15 10x6/uL (4.20-6.10); RDW 13.9 % (11.5-14.5); WBC 8.3 10x3/uL (4.8-10.8)
[2020-07-19 09:23] LABS: ALBUMIN 3.5 g/dL (3.4-5.0); ANION GAP 12.1 mmol/L (8-16); BILIRUBIN - TOTAL 0.7 mg/dL (0.2-1.3); CALCIUM 9.1 mg/dL (8.5-10.1); CARBON DIOXIDE 27.2 mmol/L (21.0-32.0); CREATININE - SERUM 1.2 mg/dL (0.6-1.3); POTASSIUM - SERUM 3.3 mmol/L (3.5-5.1)
--- NOTE | 2020-07-19 10:30 | NUR ---
AMBULATED IN HALLWAY WITH PT. UP TO SINK PER SELF. ENCOURAGED TO RW INSTRUCTED. DENIES NEEDS.
[2020-07-19 11:48] VITALS: BP 148/78
--- NOTE | 2020-07-19 12:12 | MORECARE ---
CASE MANAGEMENT DISCHARGE SUMMARY PATIENT: DYLAN SNEED UNIT: [id number] ADM DATE: 07/16/20 AGE: 80 : 42 SEX: M ROOM/BED: D.1213 AUTHOR: TROY CAMACHO PHYSICIAN: REFERRING PHYSICIAN: VANESSA GARZA DO DATE OF SERVICE: 07/19/20 Discharge Plan Patient Name: DYLAN SNEED Facility: [facility]:[place] : 1940 Planned Disposition: Outpatient PT\OT Anticipated Discharge Date: 07/18/20 Discharge Date: Expected LOS: 2 Initial Reviewer: [email or web address] Initial Review Date: 07/16/2020 Generated: 07/19/20 1:12 pm Comments DCP- Discharge Planning Updated by [email or web address]: Jennifer Ford on 07/19/20 11:[address] DC Plan: [facility] #[phone]. Patient's first appointment is Wednesday @1400., per Edwige. Patient's will him to and from therapy. Patient voices no other needs at this time. DCP- Discharge Planning Updated by [email or web address]: Jennifer Ford on 07/16/20 3:[address] DC Plan: [facility], #[phone], Fx: [phone]. CM verified with patient's OP Therapy and she is in agreement to same. Faxed required information to Edwige, with [facility]. CM met with patient to discuss initial discharge planning. Patient is in agreement to proceed with the assessment. Patient reports that he lives at home independently with his , Miya Sneed ([phone]). Patient is alert/oriented. Stairs/steps: PCP: Dr. Skinner. Pharmacy: [facility]. Patient states he has been able to obtain all of his prescribed medications. HHS: None. DME: CPM, Ice wrap, walker, shower chair. Patient gives permission to speak with family members: spouse. 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 CM discussed the availability of HH, Rehab, SNF, OP Therapy, DME services. Patient would like to use [facility] ([phone]) and feels safe returning to previous environment. Patient denies hospitalization within the past 30 days. 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 Transportation at time of discharge: Spouse, Miya. CM will follow and assist with DC needs/plans PRN. Coverage Notice Reviewer: [email or web address] - Jennifer Ford Notice Issued Date-Time: 07/16/2020 15:57 Notice Type: Patient Choice Letter Notice Delivered To: Patient Relationship to Patient: Self Circle Edger Name: Dylan Sneed Delivery Method: HAND - Hand Delivered Summer Days: Prior Verbal Notification: Recipient Understood Notice: Yes Recipient Signature: Yes Med Rec Note Co-signed by Attending: Coverage Notice Comment: [facility] choice signed/given to patient. Reviewer: [id number] - Carmine Little Notice Issued Date-Time: 07/17/2020 13:50 Notice Type: IM Discharge Notice Notice Delivered To: Patient Relationship to Patient: Self Circle Edger Name: Delivery Method: HAND - Hand Delivered Summer Days: Prior Verbal Notification: Recipient Understood Notice: Yes Recipient Signature: Yes Med Rec Note Co-signed by Attending: Coverage Notice Comment: IMM explained, understood, copy given to patient, and placed on chart. Last DP export: 07/16/20 4:30 p Patient Name: DYLAN SNEED Page [phone] at 1212 All edits/amendments must be made on the electronic document DICTATION DATE: 07/19/20 1212 CYTOGENETIC TECHNICIAN: SHANNON 07/19/20 1212 RPT#: [id number] DC DATE: STATUS: ADM IN [facility] [address] [place] [address] END OF REPORT
--- NOTE | 2020-07-19 12:22 | MORECARE ---
CASE MANAGEMENT DISCHARGE SUMMARY PATIENT: DYLAN SNEED UNIT: [id number] ADM DATE: 07/16/20 AGE: 80 : 44 SEX: M ROOM/BED: D.1213 AUTHOR: TROY CAMACHO PHYSICIAN: REFERRING PHYSICIAN: VANESSA GARZA DO DATE OF SERVICE: 07/19/20 Discharge Plan Patient Name: DYLAN SNEED Facility: [facility]:[place] : 1940 Planned Disposition: Outpatient PT\OT Anticipated Discharge Date: 07/18/20 Discharge Date: Expected LOS: 2 Initial Reviewer: [id number] Initial Review Date: 07/16/2020 Generated: 07/19/20 1:21 pm Comments DCP- Discharge Planning Updated by [id number]: Jennifer Ford on 07/19/20 11:[address] DC Plan: [facility] #[id number]. Patient's first appointment is Wednesday @1400., per Edwige. Patient's will him to and from therapy. Patient voices no other needs at this time. DCP- Discharge Planning Updated by [email or web address]: Jennifer Ford on 07/16/20 3:[address] DC Plan: [facility], #[id number], Fx: [phone]. CM verified with patient's OP Therapy and she is in agreement to same. Faxed required information to Edwige, with [facility]. CM met with patient to discuss initial discharge planning. Patient is in agreement to proceed with the assessment. Patient reports that he lives at home independently with his , Miya Sneed ([phone]). Patient is alert/oriented. Stairs/steps: PCP: Dr. Skinner. Pharmacy: [facility]. Patient states he has been able to obtain all of his prescribed medications. HHS: None. DME: CPM, Ice wrap, walker, shower chair. Patient gives permission to speak with family members: spouse. 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 CM discussed the availability of HH, Rehab, SNF, OP Therapy, DME services. Patient would like to use [facility] ([phone]) and feels safe returning to previous environment. Patient denies hospitalization within the past 30 days. Patient denies the use of community resources CORPORATE REPRESENTATIVE. Transportation at time of discharge: Spouse, Miya. CM will follow and assist with DC needs/plans PRN. Coverage Notice Reviewer: [id number] - Jennifer Ford Notice Issued Date-Time: 07/16/2020 15:57 Notice Type: Patient Choice Letter Notice Delivered To: Patient Relationship to Patient: Self Supervisor Roving Name: Dylan Sneed Delivery Method: HAND - Hand Delivered Summer Days: Prior Verbal Notification: Recipient Understood Notice: Yes Recipient Signature: Yes Med Rec Note Co-signed by Attending: Coverage Notice Comment: [facility] choice signed/given to patient. Reviewer: [id number] - Carmine Little Notice Issued Date-Time: 07/17/2020 13:50 Notice Type: IM Discharge Notice Notice Delivered To: Patient Relationship to Patient: Self Supervisor Roving Name: Delivery Method: HAND - Hand Delivered Summer Days: Prior Verbal Notification: Recipient Understood Notice: Yes Recipient Signature: Yes Med Rec Note Co-signed by Attending: Coverage Notice Comment: IMM explained, understood, copy given to patient, and placed on chart. Last DP export: 07/19/20 11:12 a Patient Name: DYLAN SNEED Page [id number] at 1222 All edits/amendments must be made on the electronic document DICTATION DATE: 07/19/20 1222 STAFF DESIGN ENGINEER: SHANNON 07/19/20 1222 RPT#: [id number] DC DATE: STATUS: ADM IN [facility] [address] [place] [address] END OF REPORT
--- NOTE | 2020-07-19 15:23 | NUR ---
SL TO LEFT WRIST D/C WITH CATHETER INTACT. DISCHARGED TO HOME AMBULATORY WITH . DISCHARGE INSTRUCTIONS GIVEN BOTH VERBALLY AND WRITTEN. ALL QUESTIONS ANSWERED. PATIENT AND VERBALIZED UNDERSTANDING OF SAME. ALL BELONGINGS WITH PATIENT.
--- NOTE | 2020-07-22 09:04 | MORECARE ---
CASE MANAGEMENT DISCHARGE SUMMARY PATIENT: DYLAN SNEED UNIT: [id number] ADM DATE: 07/16/20 AGE: 80 : 42 SEX: M ROOM/BED: D.1213 AUTHOR: TROY CAMACHO PHYSICIAN: REFERRING PHYSICIAN: VANESSA GARZA DO DATE OF SERVICE: 07/22/20 Discharge Plan Patient Name: DYLAN SNEED Facility: [facility]:[place] : 1940 Planned Disposition: Outpatient PT\OT Anticipated Discharge Date: 07/18/20 Discharge Date: 07/19/2020 Expected LOS: 2 Initial Reviewer: [email or web address] Initial Review Date: 07/16/2020 Generated: 07/22/20 10:03 am Comments DCP- Discharge Planning Updated by [email or web address]: Jennifer Ford on 07/19/20 11:[address] DC Plan: [facility] #[phone]. Patient's first appointment is Wednesday @1400., per Edwige. Patient's will him to and from therapy. Patient voices no other needs at this time. DCP- Discharge Planning Updated by [id number]: Jennifer Ford on 07/16/20 3:[address] DC Plan: [facility], #[phone], Fx: [phone]. CM verified with patient's OP Therapy and she is in agreement to same. Faxed required information to Edwige, with [facility]. CM met with patient to discuss initial discharge planning. Patient is in agreement to proceed with the assessment. Patient reports that he lives at home independently with his , Miya Sneed ([phone]). Patient is alert/oriented. Stairs/steps: PCP: Dr. Skinner. Pharmacy: [facility]. Patient states he has been able to obtain all of his prescribed medications. HHS: None. DME: CPM, Ice wrap, walker, shower chair. Patient gives permission to speak with family members: spouse. 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 CM discussed the availability of HH, Rehab, SNF, OP Therapy, DME services. Patient would like to use [facility] ([phone]) and feels safe returning to previous environment. Patient denies hospitalization within the past 30 days. Patient denies the use of community resources CROP SCOUT. Transportation at time of discharge: Spouse, Miya. CM will follow and assist with DC needs/plans PRN. Coverage Notice Reviewer: [id number] Nahomy Ford Notice Issued Date-Time: 07/16/2020 15:57 Notice Type: Patient Choice Letter Notice Delivered To: Patient Relationship to Patient: Self Creative Recruiter Name: Dylan Sneed Delivery Method: HAND - Hand Delivered Summer Days: Prior Verbal Notification: Recipient Understood Notice: Yes Recipient Signature: Yes Med Rec Note Co-signed by Attending: Coverage Notice Comment: [facility] choice signed/given to patient. Reviewer: [id number] - Carmine Little Notice Issued Date-Time: 07/17/2020 13:50 Notice Type: IM Discharge Notice Notice Delivered To: Patient Relationship to Patient: Self Creative Recruiter Name: Delivery Method: HAND - Hand Delivered Summer Days: Prior Verbal Notification: Recipient Understood Notice: Yes Recipient Signature: Yes Med Rec Note Co-signed by Attending: Coverage Notice Comment: IMM explained, understood, copy given to patient, and placed on chart. Last DP export: 07/19/20 11:22 a Patient Name: DYLAN SNEED Page [phone] at 0904 All edits/amendments must be made on the electronic document DICTATION DATE: 07/22/20 0904 JUNIOR ADMINISTRATIVE ASSISTANT: SHANNON 07/22/20 0904 RPT#: [id number] DC DATE:07/19/20 STATUS: DIS IN [facility] [address] [place] [address] END OF REPORT
== END 2020-07-19 15:24 | disposition home or self-care (01) | DRG 468 ==
LOC: D.SDCHOLD 07-16 07:54 → D.M3 07-16 07:54 → D.SDCHOLD 07-16 09:15 → D.M3 07-16 11:03 → D.SDCHOLD 07-16 11:45 → D.M3 07-19 15:24
PROVIDERS: Emergency Medicine; ADMIT Orthopaedic Surgery; ATTEND Orthopaedic Surgery
PROC: 0SPD0JZ Removal of Synthetic Substitute from Left Knee Joint, Open Approach (ICD-10-PCS; principal; 2020-07-16 09:45)
PROC: 0SRD0JZ Replacement of Left Knee Joint with Synthetic Substitute, Open Approach (ICD-10-PCS; 2020-07-16 09:45)
DX: T84.89XA Other specified complication of internal orthopedic prosthetic devices, implants and grafts, initial encounter (principal); M25.362 Other instability, left knee; X58.XXXA Exposure to other specified factors, initial encounter; I10 Essential (primary) hypertension; G47.33 Obstructive sleep apnea (adult) (pediatric)